=== PATIENT | male | born 1955 | race Caucasian/White ===

== ENCOUNTER → 2016-06-09 | Outpatient (CLI) | payer BC ==
[2015-11-25 13:40] VITALS: BP 120/70
[~2016-06-09] MED LIST: ACET500T68 PO; CELE200C PO; DESV50TA PO; DICL100T2 PO; DOCU-27 PO; GLUC100018 PO; HYDR-2666 PO; HYDR-2679 PO; NAPR220C4 PO; OMEP40CA5 PO; TAMS0.4C2 PO
[2016-06-09 14:07] LABS: BASO % 0 % (0-3); EOS % 3 % (0-3); HEMATOCRIT 47.1 % (39.0-53.0); LYMPH # 0.8 x10^3/uL (1.0-4.8); LYMPH % 17 % (24-48); MEAN CORPUSCULAR HEMOGLOBIN 31 pg (25-35); MEAN CORPUSCULAR HGB CONC 34 g/dL (31-37); MEAN CORPUSCULAR VOLUME 90 fL (79-100); MONO % 9 % (0-9); NEUT % 71 % (31-73); PLATELET COUNT 168 x10^3/uL (140-400); RED BLOOD COUNT 5.22 x10^6/uL (4.30-5.70); RED CELL DISTRIBUTION WIDTH 14.1 % (11.5-14.5); WHITE BLOOD COUNT 4.9 x10^3/uL (4.0-11.0)
[2016-06-09 14:42] LABS: ALBUMIN 3.9 g/dL (3.4-5.0); ALBUMIN/GLOBULIN RATIO 1.1 (1.0-1.7); CALCIUM 9.2 mg/dL (8.5-10.1); CREATININE 0.8 mg/dL (0.7-1.3); POTASSIUM 3.5 mmol/L (3.5-5.1); TOTAL BILIRUBIN 0.7 mg/dL (0.2-1.0); TOTAL PROTEIN 7.3 g/dL (6.4-8.2)
== END | disposition home or self-care (01) ==
LOC: SURGPAT 13:26
PROVIDERS: ATTEND Neurological Surgery
DX: Z01.812 Encounter for preprocedural laboratory examination (principal)
CPT/HCPCS: 36415; 80053; 85027; 87641

== ENCOUNTER → 2016-06-11 | Day surgery (SDC) | payer BC ==
[~2016-06-11] VITALS: Ht 177.8 cm; Wt 126.6 kg
[~2016-06-11] MED LIST changes: +BACITRACIN 50,000 UNIT in IV NORMAL SALINE 1000ML BAG 1,000 ML IRR ONE; +BUPIVAC MPF-EPI 0.5%-1:200000 30 ML VIAL. ONE; +DEXAMETHASONE SOD PHOS 20 MG/5 ML VIAL. ONE; +EPHEDRINE PF IN SALINE 50 MG/5 ML DISP.SYRIN. IV ONE; +FENTANYL PF 100 MCG/2 ML VIAL. IV PRN; +FENTANYL PF 100 MCG/2 ML VIAL. ONE; +GELATIN SPONGE SIZE 100. ONE; +GLYCOPYRROLATE 1 MG/5 ML VIAL. ONE; +HYDROCODONE/APAP 7.5/325MG TABLET. PO PRN; +HYDROMORPHONE 2 MG/ML VIAL. IV PRN; +IV RINGERS,LACTATED 1000ML 1,000 ML IV SCH; +KETOROLAC 60 MG/2 ML SYRINGE FOR OR. ONE; +LIDOCAINE 1% 1 ML SYRINGE. ID PRN; +LIDOCAINE 2% 100 MG/5 ML DISP.SYRIN. ONE; +MIDAZOLAM HCL 2 MG/2 ML VIAL. ONE; +MORPHINE SULFATE 2 MG/ML DISP.SYRIN. IV PRN; +NEOSTIGMINE METHYLSULFATE 5 MG/5 ML SYRINGE. ONE; +ONDANSETRON PF 4 MG/2 ML VIAL. IV PRN; +ONDANSETRON PF 4 MG/2 ML VIAL. ONE; +PHENYLEPHRINE 10 MG/ML VIAL. ONE; +PROCHLORPERAZINE 10 MG/2 ML VIAL. IV PRN; +PROPOFOL 20 ML IV ONE; +PROPOFOL 50 ML IV ONE; +REMIFENTANIL 2 MG VIAL. IV ONE; +ROCURONIUM 50 MG/5 ML VIAL. ONE; +SEVOFLURANE > 120 MINUTES. IH ONE; +THROMBIN 20,000 UNIT SPRAY.SYRN KIT TP ONE; +VANCOMYCIN 1GM IVPB FOR OMNI 250 ML IV PRN
--- NOTE | 2016-06-11 06:29 | HP ---
ADMIT DATE: 06/11/2016 Felix Montanez RN, dictating for Dr. Bryon Livingston. Date of surgery is 06/11/2016. HISTORY OF PRESENT ILLNESS: The patient is a pleasant 61-year-old man who is having difficulty with low back pain and pain which radiates into his left hip and left anterior thigh, knee and proximal anterior leg. He said he has had back pain for about one year. The problem has been severe. He rates it as an 8/10. Standing and walking aggravates his pain. Leaning forward gives him some relief. He takes [place]. He has had physical therapy, which was of no help. He has had epidural steroid injections and he received two weeks of improvement until the pain became severe again. I studied him with lumbar myelography. The patient also complains of some neck and left arm pain. He says this is an old problem and is overshadowed by his severe back and leg discomfort. He would like me to focus on his lower back. PAST MEDICAL HISTORY: Arthritis, left hip artificial joint, shingles, Rodas's esophagus. PAST SURGICAL HISTORY: hip surgery and hip replacement in 1999, cholecystectomy in 1996, appendectomy in 2011, hernia in 2014, lumbar surgery. FAMILY HISTORY: Cancer, diabetes, heart disease, hypertension. 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 . Denies substance abuse. Quit smoking more than 10 years ago after smoking a half pack per day for 10 years. Drinks alcohol one to two times per year. ALLERGIES: PENICILLIN. CURRENT MEDICATIONS: Pristiq, celecoxib, omeprazole, [place]. REVIEW OF SYSTEMS: A 12-point review of systems was obtained and is noncontributory except for that mentioned above. PHYSICAL EXAMINATION: NEUROSURGERY EXAMINATION: GENERAL APPEARANCE: Alert, pleasant, no acute distress. HEAD: Normocephalic and atraumatic. BACK: Inqz-oe-qyjlbqyl tenderness with palpation of lower lumbar spine. Well healed incision. SKIN: Warm and dry. MUSCULOSKELETAL: Lumbar paraspinal muscle bulk is normal. Restricted range of motion of the lumbar spine, normal range of motion of the lower extremities bilaterally. EXTREMITIES: No clubbing, cyanosis, or edema. NEUROLOGIC: Alert and oriented x 3, normal recent and remote memory, strength 5/5 in bilateral lower extremities and upper extremities. Sensory was intact to light touch in the upper and lower extremities. Reflexes were trace and symmetric in the upper and lower extremities bilaterally, normal gait. IMAGING: I reviewed a lumbar myelogram. On that study, there were number of abnormalities. At L2-L3 where there was a large left side extradural defect, which is primarily due to hypertrophic facet and moderate diffuse disc bulging. Additionally, at this level, there is moderately severe central spinal stenosis. ASSESSMENT/ PLAN: He has a number of problems with his lumbar spine. The major issue at this point is L2-L3 in the left where there was nerve root compression, which corresponds to his left anterior thigh and radicular pain. Today, he reported to me that he has had previous lumbar surgeries many years ago. At this point, my feeling is that if he wishes, I would be willing to operate and decompress L2-L3 on the left to see if that would not help him. I did discuss surgery and risks with him as well as expected postoperative course. He understands. He elected to go ahead with surgery and he will contact us. BRYON LIVINGSTON MD DR: MANSI/alfonso JOB#: [id number] / [id number] JACK
--- NOTE | 2016-06-11 11:25 | DISCH ---
DISCHARGE INSTRUCTIONS Condition on Discharge Condition on Discharge: Stable Activity After Discharge Activity Instructions for Disc: Activity as tolerated, Avoid exertion Other activity instructions: no driving for a week Bathing Instructions: Shower-keep dressing dry Lifting Instructions after Dis: No heavy lifting, No pulling or pushing, Do not lift >10 pounds Diet after Discharge Additional Diet Restrictions: resume home diet Wound Incision Care Wound/Incision Care: Ice to area for comfort Other wound/incision instructi: may remove dressing in 48 hrs if dry then may shower- no soaking Contacting the after DC Call your doctor for: Concerns you may have Follow-Up Follow up with: Dr. Livingston in 2 weeks [phone] PNACHO LIVINGSTON MD Jun 11, 2016 11:25
[2016-06-11 13:00] VITALS: BP 110/69
--- NOTE | 2016-06-11 14:31 | OP ---
DATE OF SURGERY: 06/11/2016 PREOPERATIVE DIAGNOSES: Lumbar spinal stenosis, L2-L3, left with severe left lumbar radiculopathy. POSTOPERATIVE DIAGNOSES: Lumbar spinal stenosis, L2-L3, left with severe left lumbar radiculopathy. OPERATION PERFORMED: Hemilaminotomy with decompression of dura and nerve root at L2-L3, left. The operation was done with EMG monitoring, fluoroscopy, microscopic dissection. SURGEON: Bryon Livingston M.D. BALANCE BRIDGE ASSEMBLER: PADMINI Emerson, assisted with the surgery. She assisted with the microdecompression as well as the closure. OPERATIVE INDICATIONS: The patient is a very pleasant 61-year-old man who in the past has undergone extensive lumbar surgery. He developed problems with severe left hip and left anterior thigh and knee pain and was found on imaging studies to have lateral recess stenosis, which was severe at L2-L3. I recommended microdecompressive surgery at this level. I spoke with him about the surgery, the risks, the technique and the expected postoperative course and he wished to go ahead. DESCRIPTION OF PROCEDURE: Following general endotracheal anesthesia, the patient was positioned prone on the [facility] spine board. His lumbar region was prepped and draped in standard fashion. BRIJESH hose and AV impulse boots were applied for DVT prophylaxis. The microscope was draped, fluoroscopy was draped and brought in the field. Vancomycin 1 gram was given. Using fluoroscopic guidance, incision was made directly over the L2-L3 interspace. He had a long well-healed lumbar incision and this incision was within that old incision. I dissected down through the skin and subcutaneous tissue, reflected the paraspinal muscles and placed a [place] micro disc retractor, brought in the microscope and using microscopic technique, I brought in the high speed air drill, from which I burred down a hemilaminotomy. There was considerable scarring. There was some residual ligamentum flavum, which was scarred to the dura. I worked gently with micro instruments, freed the ligament off of the dura and then trimmed this away. I then worked inferiorly and performed a partial foraminotomy. There was some bone, which was densely adherent from the facet to the exiting root and I worked diligently and trimmed this material away performing a partial foraminotomy. I palpated the disc, which was firm and not bulging significantly posteriorly. I removed some of the epidural fat from the posterior midline and I fully decompressed the region. Following this, then I irrigated with antibiotic solution. The incision was closed with absorbable suture and the skin was closed with 4.0 subcuticular stitch. The surgery went very well, I was quite pleased. BRYON LIVINGSTON MD DR: MANSI/alfonso JOB#: [id number] / [id number] JACK
--- NOTE | 2016-06-12 14:52 | PATHOLOGY ---
PATHOLOGY REPORT * * * * * * * * FINAL DIAGNOSIS: Segments of fibrocartilaginous, fibroadipose, and skeletal muscle tissue and bone, lumbar decompression: - Degenerative changes of fibrocartilaginous tissue. COMMENT: There is no evidence of an acute inflammatory process or malignancy. (JPM:; d/t: 06/12/16) REPORT ELECTRONICALLY SIGNED BY: Elfego Lmabert M.D. DATE/TIME: 06/12/2016 14:52 * * * * * * * * GROSS PATHOLOGY: Received in formalin labeled "Bianca Vidales, lumbar decompression" are multiple segments of shearer, rubbery, and gritty tissue admixed with bone. The specimen measures 4.8 x 3.0 x 0.5 cm in aggregate dimensions. The tissue is submitted representatively in cassette A1, following decalcification. (CAA; 06/11/2016) INITIAL CPT CODE(S): A; 53889, 10804 Professional services performed by [facility] [place] [address] Technical services performed by [facility] at [address] [place] [address]. SPECIMEN(S) RECEIVED: A.Lumbar decompression CLINICAL HISTORY: Lumbar stenosis, radiculopathy PATIENT: BIANCA VIDALES /AGE: 12 1955 (Age: 61) PATIENT #: [id number] ALT CASE #: SPECIMEN COLLECTION DATE: 06/11/2016 SPECIMEN RECEIVED DATE: 06/11/2016 [facility] - [address] [place] [address] - PHONE: [phone] * * * END OF REPORT * * *
== END ==
LOC: SURG 06:51
PROVIDERS: ATTEND Neurological Surgery
DX: M48.06 Spinal stenosis, lumbar region (principal); M54.16 Radiculopathy, lumbar region; M19.90 Unspecified osteoarthritis, unspecified site; F41.9 Anxiety disorder, unspecified; F32.9 Major depressive disorder, single episode, unspecified; K21.9 Gastro-esophageal reflux disease without esophagitis; Z90.49 Acquired absence of other specified parts of digestive tract
CPT/HCPCS: 63030; 76000; 97161; J1100; J1885; J2250; J2405; J2704; J2710; J3010; J3370; J3490; J7030; J7120; 88304; 88311

== ENCOUNTER → 2016-07-14 | Outpatient (CLI) | payer BC ==
[2016-06-11 13:00] VITALS: BP 110/69
[~2016-07-14] MED LIST changes: -BACITRACIN 50,000 UNIT in IV NORMAL SALINE 1000ML BAG 1,000 ML IRR ONE; -BUPIVAC MPF-EPI 0.5%-1:200000 30 ML VIAL. ONE; -DEXAMETHASONE SOD PHOS 20 MG/5 ML VIAL. ONE; -EPHEDRINE PF IN SALINE 50 MG/5 ML DISP.SYRIN. IV ONE; -FENTANYL PF 100 MCG/2 ML VIAL. IV PRN; -FENTANYL PF 100 MCG/2 ML VIAL. ONE; -GELATIN SPONGE SIZE 100. ONE; -GLYCOPYRROLATE 1 MG/5 ML VIAL. ONE; -HYDROCODONE/APAP 7.5/325MG TABLET. PO PRN; -HYDROMORPHONE 2 MG/ML VIAL. IV PRN; +IOHEXOL 180 MG/ML 10 ML VIAL. ONE; -IV RINGERS,LACTATED 1000ML 1,000 ML IV SCH; -KETOROLAC 60 MG/2 ML SYRINGE FOR OR. ONE; -LIDOCAINE 1% 1 ML SYRINGE. ID PRN; -LIDOCAINE 2% 100 MG/5 ML DISP.SYRIN. ONE; -MIDAZOLAM HCL 2 MG/2 ML VIAL. ONE; -MORPHINE SULFATE 2 MG/ML DISP.SYRIN. IV PRN; -NEOSTIGMINE METHYLSULFATE 5 MG/5 ML SYRINGE. ONE; -ONDANSETRON PF 4 MG/2 ML VIAL. IV PRN; -ONDANSETRON PF 4 MG/2 ML VIAL. ONE; -PHENYLEPHRINE 10 MG/ML VIAL. ONE; -PROCHLORPERAZINE 10 MG/2 ML VIAL. IV PRN; -PROPOFOL 20 ML IV ONE; -PROPOFOL 50 ML IV ONE; -REMIFENTANIL 2 MG VIAL. IV ONE; -ROCURONIUM 50 MG/5 ML VIAL. ONE; -SEVOFLURANE > 120 MINUTES. IH ONE; -THROMBIN 20,000 UNIT SPRAY.SYRN KIT TP ONE; -VANCOMYCIN 1GM IVPB FOR OMNI 250 ML IV PRN; +methylPREDNISolone ACETATE 40 MG/ML VIAL. ONE; +methylPREDNISolone ACETATE 80 MG/ML VIAL. ONE
--- NOTE | 2016-07-15 05:58 | PAIN ---
DATE OF SERVICE: 07/14/2016 DIAGNOSES: 1. Cervical radiculopathy with cervical degenerative disk disease. 2. Lumbar radiculopathy with lumbar degenerative disk disease and post-lumbar laminectomy syndrome. HISTORY OF PRESENT ILLNESS: The patient is a 61-year-old male who returns for followup status post cervical epidural steroid injection as well as lumbar epidural steroid injection. The patient had surgery last month for his lumbar spine and is doing much better in that respect. The patient reports doing much better with low back. His main complaint today is neck and bilateral upper extremity pain, somewhat worse on the left than the right, but heaviness, weakness and aching pain on the upper extremities as well as the base of the neck. The patient reports " ", although he has actually no motor loss. The patient reports anywhere from a 4 to an 8 on a scale of 10. The pain is currently a 4 on a scale of 10 right now. The patient reports no new motor or sensory deficits, has significant pain increase with activity using his upper extremities in repetitive motions, reaching above his head or carrying items with his hands, especially with driving the car or using a hands in any other fashion. The patient reports no loss of motor function, once again significant fatigability and heaviness, especially on the left side. PHYSICAL EXAMINATION: VITAL SIGNS: The patient's blood pressure 133/41, pulse is 85, respirations 18, temperature 98.1 degrees Fahrenheit. Height is 5 feet 11 inches, weighs 289 pounds. GENERAL: The patient is awake, alert, oriented, appropriate, very pleasant demeanor. HEENT: Head shows normocephalic, atraumatic. Extraocular movements are intact and symmetrical. Oral cavity, mucous membranes are moist and pink. Dentition is intact. NECK: Anterior throat supple without palpable lymphadenopathy noted. Swallow reflex is symmetrical. CHEST: Shows normal on inspection. Breath sounds clear to auscultation bilaterally. HEART: Shows S1 and S2 clear. No murmurs are auscultated. ABDOMEN: Soft, nontender, nondistended, obese, but without palpable organomegaly noted. No rebound or guarding demonstrated. BACK: Shows spine grossly midline. Well-healed surgical scar is noted in the lumbar distribution, some flattening of lumbar lordotic curvature. The patient's cervical curvature shows some mild decrease in the curvature, but normal thoracic kyphotic curvature is noted. The patient shows good rotational motion of cervical spine, both laterally as well as extension and flexion without significant pain, but some minor pain reported with extension only. EXTREMITIES: Upper extremity showed deep tendon reflexes at 1+ in the biceps and triceps tendons. Motor exam is strong; however, with 5/5 manager document strength at bicep and tricep flexion about 4/5, but equal and symmetrical. Peripheral pulses are 2+ in the radial distribution. No peripheral edema is noted. No clubbing, no cyanosis. Shoulder shrug is strong and intact without loss of strength on resistance as is abduction of shoulder to 90 degrees without loss of strength on resistance and pain reported. Options were discussed with the patient and the patient's old chart was reviewed as his current medication regimen updated. Current review of systems updated today as well and we will proceed with a cervical epidural steroid injection. Today is the first in this series. Risks were again discussed including, but not limited to bleeding, infection, possibility of epidural hematoma, subsequent neurologic compromise, dural puncture, headaches, spinal cord and/or nerve damage, side effects of steroid medication and poor results regarding pain control. The patient understands and wishes to proceed. The patient will return to clinic in approximately 2 weeks for followup, was counseled on return appointment, activity level and side effects to be aware of. DIAGNOSIS: Cervical radiculopathy with cervical degenerative disk disease. PROCEDURE: Cervical epidural steroid injection in translaminar approach at C6-C7 level using C-arm fluoroscopic guidance under sterile prep and drape using local anesthetic. Medication injected 120 mg Depo-Medrol plus 5 mL of preservative-free normal saline and 2 mL Isovue for contrast. CONDITION AT DISCHARGE: Stable. The patient tolerated procedure well, had no complications. LOUISE FIGUEROA MD DR: MICHAEL/alfonso JOB#: [id number] / [id number]
== END | disposition home or self-care (01) ==
LOC: PNCL 10:43
PROVIDERS: ATTEND Anesthesiology
DX: M50.123 Cervical disc disorder at C6-C7 level with radiculopathy (principal); M96.1 Postlaminectomy syndrome, not elsewhere classified; M51.17 Intervertebral disc disorders with radiculopathy, lumbosacral region; K21.9 Gastro-esophageal reflux disease without esophagitis; M19.90 Unspecified osteoarthritis, unspecified site; F41.9 Anxiety disorder, unspecified; F32.9 Major depressive disorder, single episode, unspecified; Z87.39 Personal history of other diseases of the musculoskeletal system and connective tissue; Z96.642 Presence of left artificial hip joint
CPT/HCPCS: 62321; J1030; J1040

== ENCOUNTER → 2016-07-23 | Outpatient (CLI) | payer BC ==
[2016-06-11 13:00] VITALS: BP 110/69
[~2016-07-23] MED LIST changes: -IOHEXOL 180 MG/ML 10 ML VIAL. ONE; -methylPREDNISolone ACETATE 40 MG/ML VIAL. ONE; -methylPREDNISolone ACETATE 80 MG/ML VIAL. ONE
--- NOTE | 2016-07-23 11:12 | RAD ---
PROCEDURE Cervical spine MRI without contrast. HISTORY Spinal stenosis. TECHNIQUE Multiplanar and multi sequence magnetic resonance imaging of the cervical spine was performed without contrast. COMPARISON None. FINDINGS There is reversal of cervical lordosis. There is slight retrolisthesis of C3 on C4 and C 6 on C7 and anterolisthesis of C4 on C5, C7 on T1 and T1 on T2. There is degenerative endplate remodeling with disc space narrowing predominately at C5-C6 and C6-C7. There are Schmorl's nodes at these levels. There is a minimal superior endplate depression at T3. There is no acute or subacute fracture. There are right greater than left maxillary sinus mucous retention cysts. The skullbase and posterior fossa are unremarkable. There is symmetric T2 hyperintensity within the lateral aspects of the spinal cord extending from the inferior aspect C4 to the mid aspect of C5 and within the bilateral dorsal columns at the inferior aspect of C5. This region of abnormal signal measures approximately 2.5 cm in length and occupies the majority of the spinal cord caliber with preservation of the midline. There is no evidence of cord atrophy in this location. No additional spinal cord lesion is seen. There is a small round hypointense lesion within the inferior aspect of T1, possibly an atypical hemangioma. At C2-C3, there is right posterior lateral predominant endplate remodeling. There is mild right facet and uncovertebral arthropathy. There is mild right foraminal stenosis. At C3-C4, there is a left paracentral to foraminal disc protrusion superimposed on a disc bulge and endplate osteophytosis. There is mild to moderate left facet arthropathy. There is uncovertebral arthropathy. There is moderate to severe right and severe left foraminal stenosis. There is mild central canal stenosis with effacement of the thecal sac and abutment of the ventral aspect of the spinal cord. At C4-C5, there is a broad-based right paracentral to foraminal disc protrusion superimposed on a disc bulge and endplate osteophytosis. There is moderate bilateral facet arthropathy. There is uncovertebral arthropathy. There is severe bilateral foraminal stenosis. There is moderate to severe central canal stenosis measuring 7.4 mm in anterior-posterior dimension. There is deformation of the spinal cord and abnormal spinal cord signal at this level, described in detail above. At C5-C6, there is a diffuse disc bulge and endplate osteophytosis. There is mild facet arthropathy. There is uncovertebral arthropathy. There is moderate to severe bilateral foraminal stenosis. There is flattening of the ventral aspect of the spinal cord without significant central canal stenosis. At C6-C7, there is a diffuse disc bulge and endplate osteophytosis. There is uncovertebral arthropathy. There is severe right and moderate to severe left foraminal stenosis. There is abutment of the ventral aspect of the spinal cord with mild central canal stenosis measuring 9.3 mm in anterior-posterior dimension. There are disc bulges with endplate remodeling and facet arthropathy at the upper thoracic levels, resulting in moderate left foraminal stenosis at C7-T1, moderate to severe bilateral foraminal stenosis at T1-T2, mild right and moderate left foraminal stenosis at T2-T3, and mild bilateral foraminal stenosis at T3-T4. IMPRESSION 1. Signal abnormality within the lateral aspect of the spinal cord and bilateral dorsal columns at C4 and C5. There is no clear decreased cord caliber to suggest myelomalacia. The differential includes edema and demyelination. Short-term followup is indicated. 2. Multilevel degenerative change within the cervical and upper thoracic spine, described in detail above. This results in mild right foraminal stenosis at C2-C3, moderate to severe right and severe left foraminal and mild central canal stenosis C3-C4, severe bilateral foraminal and moderate to severe central canal stenosis C4-C5, moderate to severe bilateral foraminal stenosis at C5-C6, severe right and moderate to severe left foraminal and mild central canal stenosis at C6-C7, and multilevel foraminal stenosis at the upper thoracic levels. 3. Reversal of cervical lordosis and multilevel listhesis. Electronically signed by: Elaine Doan (Jul 23, 2016 11:11:32)
== END | disposition home or self-care (01) ==
LOC: MRI 09:51
PROVIDERS: ATTEND Neurological Surgery
DX: M48.02 Spinal stenosis, cervical region (principal)
CPT/HCPCS: 72141

== ENCOUNTER → 2016-08-10 | Outpatient (CLI) | payer BC ==
[2016-06-11 13:00] VITALS: BP 110/69
[~2016-08-10] MED LIST changes: +MULT1TAB52 PO
[2016-08-10 17:34] LABS: BASO # 0.1 x10^3/uL (0.0-0.2); BASO % 1 % (0-3); EOS % 4 % (0-3); HEMATOCRIT 48.5 % (39.0-53.0); HEMOGLOBIN 16.8 g/dL (13.0-17.5); LYMPH # 2.1 x10^3/uL (1.0-4.8); LYMPH % 29 % (24-48); MEAN CORPUSCULAR HEMOGLOBIN 31 pg (25-35); MEAN CORPUSCULAR HGB CONC 35 g/dL (31-37); MEAN CORPUSCULAR VOLUME 89 fL (79-100); MONO % 8 % (0-9); NEUT % 58 % (31-73); PLATELET COUNT 215 x10^3/uL (140-400); RED BLOOD COUNT 5.48 x10^6/uL (4.30-5.70); RED CELL DISTRIBUTION WIDTH 13.7 % (11.5-14.5); WHITE BLOOD COUNT 7.3 x10^3/uL (4.0-11.0)
[2016-08-10 17:48] LABS: PROTHROMBIN TIME PATIENT 12.3 SEC (11.7-14.0)
[2016-08-10 17:55] LABS: ALBUMIN 3.7 g/dL (3.4-5.0); CALCIUM 9.4 mg/dL (8.5-10.1); CREATININE 0.8 mg/dL (0.7-1.3); TOTAL BILIRUBIN 0.4 mg/dL (0.2-1.0); TOTAL PROTEIN 7.4 g/dL (6.4-8.2)
== END | disposition home or self-care (01) ==
LOC: SURGPAT 13:29
PROVIDERS: ATTEND Neurological Surgery
DX: M54.12 Radiculopathy, cervical region (principal); M48.02 Spinal stenosis, cervical region; M47.12 Other spondylosis with myelopathy, cervical region
CPT/HCPCS: 36415; 80053; 85027; 85610; 85730; 87641

== ENCOUNTER 2016-08-24 06:54 | Day surgery (SDC) | payer BC ==
--- NOTE | 2016-08-24 06:30 | PREOP HP ---
DATE OF SERVICE: 08/24/2016 DATE OF SURGERY: 08/28/2016. HISTORY OF PRESENT ILLNESS: The patient is a pleasant 61-year-old who underwent lumbar decompressive surgery in May of this year and did very well from that. He has noted increasing neck pain and bilateral shoulder pain more recently. He says pain radiates into both of his arms, and he notes bilateral hand numbness and pain. He says he feels as though he has developed some balance changes recently. There was no inciting event. He rates his pain as a 7 out of 10. Walking or reaching up increases his discomfort. He is taking hydrocodone. PAST MEDICAL HISTORY: Arthritis, left hip artificial joint, shingles, and Rodas esophagus. PAST SURGICAL HISTORY: Hip surgery and hip replacement in 1999, cholecystectomy in 1996, appendectomy in 2011, hernia repair 2014, and lumbar microdecompression at L2-L3 on the left 05/2016. FAMILY HISTORY: Cancer, heart disease, and hypertension. 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 . Denies substance abuse. Quit smoking more than 10 years ago. Smoked 1 pack per day for 10 years. Drinks alcohol one to two times per year. ALLERGIES: PENICILLIN. CURRENT MEDICATIONS: ____ , celecoxib, omeprazole, [place]. REVIEW OF SYSTEMS: A 12-point review of systems was obtained and is noncontributory except for that mentioned above. PHYSICAL EXAMINATION: NEUROSURGERY EXAMINATION: GENERAL APPEARANCE: Alert, pleasant, no acute distress. HEAD: Normocephalic and atraumatic. NECK AND THYROID: Mild to moderate tenderness with palpation of posterior cervical region. SKIN: Warm and dry. MUSCULOSKELETAL: Cervical paraspinal muscle bulk is normal, restricted range of motion of the cervical spine, normal range of motion of the upper extremities bilaterally. EXTREMITIES: No clubbing, cyanosis, or edema. NEUROLOGIC: Alert and oriented x 3, normal recent and remote memory, strength 5 out of 5 in bilateral upper and lower extremities, sensory was intact to light touch in the upper and lower extremities except for decreased involving both his forearms and hands to light touch, reflexes were absent in both upper and lower extremities, and unsteady gait. IMAGING REVIEWED: I reviewed his cervical MRI scan. On that study, there is mild central canal stenosis at C3-C4. There is severe central canal stenosis present at C4-C5 and C5-C6. There is flattening of the ventral surface of the cord without severe stenosis. There is multilevel foraminal narrowing present. Additionally, extending from the inferior aspect of C4 through the mild aspect of C5, there is symmetric T2 hyperintensity within the spinal cord strongly suggestive of edema versus myelomalacia. ASSESSMENT: 1. Spinal stenosis, cervical region. 2. Spondylosis with myelopathy, cervical region. 3. Radiculopathy, cervical region. PLAN: At this point, I feel his primary problem is related to cervical myelopathy and cervical spinal stenosis. My recommendation is that he undergo a cervical laminectomy extending from C3 through C6 with posterior instrumentation and fusion. I did discuss this with him. I outlined the risks of surgery as well as potentials benefits. I also explained the expected postoperative course. He would like to go ahead. We will make the arrangements. PANCHO LIVINGSTON MD DR: MANSI/alfonso JOB#: [id number] / [id number]
[~2016-08-24 06:54] MED LIST changes: +BACITRACIN 50,000 UNIT in IV NORMAL SALINE 1000ML BAG 1,000 ML IRR ONE; +FENTANYL PF 100 MCG/2 ML VIAL. IV PRN; +IV RINGERS,LACTATED 1000ML 1,000 ML IV SCH; +LIDOCAINE 1% 1 ML SYRINGE. ID PRN; +MIDAZOLAM HCL/PF 2 MG/2 ML VIAL. IV PRN
[2016-08-24] MEDS ORDERED: PROCHLORPERAZINE 10 MG/2 ML VIAL. IV PRN (07:00)
[2016-08-24] MEDS ORDERED: HYDROMORPHONE 2 MG/ML VIAL. IV PRN (07:00)
[2016-08-24] MEDS ORDERED: IV RINGERS,LACTATED 1000ML 1,000 ML IV SCH (07:00)
[2016-08-24] MEDS ORDERED: ONDANSETRON PF 4 MG/2 ML VIAL. IV PRN (07:00)
[2016-08-24] MEDS ORDERED: VANCOMYCIN 1GM IVPB FOR OMNI. ONE (07:00)
[2016-08-24] MEDS ORDERED: LIDOCAINE 1% 1 ML SYRINGE. ID PRN (07:00)
[2016-08-24] MEDS ORDERED: FENTANYL PF 100 MCG/2 ML VIAL. IV PRN (07:00)
[2016-08-24] MEDS ORDERED: MORPHINE SULFATE 2 MG/ML DISP.SYRIN. IV PRN (07:00)
[2016-08-24] MEDS ORDERED: BUPIVAC MPF-EPI 0.5%-1:200000 30 ML VIAL. ONE (07:58)
[2016-08-24] MEDS ORDERED: KETOROLAC 60 MG/2 ML INJ FOR OR. ONE (07:58)
[2016-08-24] MEDS ORDERED: GELATIN SPONGE SIZE 100. ONE (07:58)
[2016-08-24] MEDS ORDERED: THROMBIN TOPICAL 20,000 UNIT SPRAY.SYRN KIT TP ONE (07:58)
[2016-08-24] MEDS ORDERED: VANCOMYCIN 1GM IVPB FOR OMNI 250 ML IV ONE (08:00)
[2016-08-24] MEDS ORDERED: PROPOFOL 50 ML IV ONE (08:10)
[2016-08-24] MEDS ORDERED: FENTANYL PF 100 MCG/2 ML VIAL. ONE (08:10)
[2016-08-24] MEDS ORDERED: LIDOCAINE 2% 100 MG/5 ML SYRINGE. ONE (08:10)
[2016-08-24] MEDS ORDERED: PROPOFOL 20 ML IV ONE (08:10)
[2016-08-24] MEDS ORDERED: SUCCINYLCHOLINE 200 MG/10 ML VIAL. ONE (08:10)
[2016-08-24] MEDS ORDERED: DEXAMETHASONE SOD PHOS 20 MG/5 ML VIAL. ONE (08:10)
[2016-08-24] MEDS ORDERED: REMIFENTANIL 2 MG VIAL. IV ONE (08:10)
[2016-08-24] MEDS ORDERED: ROCURONIUM 50 MG/5 ML VIAL. ONE (08:10)
[2016-08-24] MEDS ORDERED: MIDAZOLAM HCL/PF 2 MG/2 ML VIAL. ONE (08:20)
[2016-08-24] MEDS ORDERED: EPHEDRINE PF IN SALINE 50 MG/5 ML DISP.SYRIN. IV ONE ×2 (09:01→09:53)
[2016-08-24] MEDS ORDERED: GLYCOPYRROLATE 1 MG/5 ML VIAL. ONE (09:01)
[2016-08-24] MEDS ORDERED: PHENYLEPHRINE 10 MG/ML VIAL. ONE (09:07)
[2016-08-24] MEDS ORDERED: NEOSTIGMINE METHYLSULFATE 5 MG/5 ML SYRINGE. ONE (10:08)
[2016-08-24] MEDS ORDERED: DESFLURANE 61 TO 120 MINUTES IH ONE (10:23)
--- NOTE | 2016-08-24 10:34 | PDOC ---
Date and Time Patient for posterior cervical laminectomy. Tolearted induction and intubation without problem. Soon after he was placed in the prone position oxygen saturation declined to the upper 80s and BP required onging treatment with pressors and fluid. Head discolored. Lung askew were clear bilaterally to ascultation. No ronchi. ETT cuff checked and found to be properly inflated to just seal. Repositioned head and neck with slight improvement in color. I placed bronchchoscope to make certain that ETT was not malpositioned. ETT 1.5 cm above brian. There were no secretions or lesions noted than would explain the saturation. Discussed with surgeon. We decided that the best course was to not start the procedure and have pulmonary medicine evaluate the patient. Upon returning to the supine position saturation quickly improved to 98%. BP improved to 150/80s Head discoloration improved rapidly too. I suspect the hemodynamic and saturation issues were directly caused by positioning the patient prone with abdominal compression. Will have pulmonary medicine see him to be certain there are no underlying issues. When he is rescheduled we will have to have an operating table that allows his abdomen to hang freely. Current Medications Current Medications Midazolam HCl (Versed) 2 mg PRN 1X PRN IV PRIOR TO PROCEDURE; Start 08/21/16 at 15:00; Stop 08/22/16 at 14:59; Status Cancel Fentanyl Citrate (Fentanyl 2ml Vial) 25 mcg PRN Q5MIN PRN IV X 2 DOSES FOR PAIN ; Start 08/21/16 at 15:00; Stop 08/22/16 at 14:59; Status Cancel Fentanyl Citrate 50 mcg 50 mcg PRN Q5MIN PRN IV X 2 DOSES FOR PAIN; Start at 15:00; Stop 08/22/16 at 14:59; Status Cancel Lactated Ringer's (Iv Lactated Ringers) 1,000 ml @ 125 mls/hr Q8H IV ; Start at 14:57; Stop 08/22/16 at 02:56; Status DC Lidocaine HCl 2 ml 1X PRN PRN ID IV START; Start 08/21/16 at 15:00; Stop at 14:59; Status Cancel Ondansetron HCl (Zofran) 4 mg PRN Q6HRS PRN IV NAUSEA/VOMITING; Start 08/24/16 at 07:00; Stop 08/25/16 at 06:59 Fentanyl Citrate (Fentanyl 2ml Vial) 25 mcg PRN Q5MIN PRN IV MILD PAIN; Start 08/24/16 at 07:00; Stop 08/25/16 at 06:59 Fentanyl Citrate (Fentanyl 2ml Vial) 50 mcg PRN Q5MIN PRN IV MODERATE PAIN; Start 08/24/16 at 07:00; Stop 08/25/16 at 06:59 Morphine Sulfate 1 mg 1 mg PRN Q10MIN PRN IV SEVERE PAIN; Start 08/24/16 at 07: 00; Stop 08/25/16 at 06:59 Lactated Ringer's (Iv Lactated Ringers) 1,000 ml @ 0 mls/hr Q0M IV Last administered on 08/24/16t 07:44; Start 08/24/16 at 07:00; Stop 08/24/16 at 18:59 Lidocaine HCl 2 ml PRN 1X PRN ID PRIOR TO IV START; Start 08/24/16 at 07:00; Stop 08/25/16 at 06:59 Hydromorphone HCl (Dilaudid) 0.5 mg PRN Q10MIN PRN IV SEV PAIN, Second choice; Start 08/24/16 at 07:00; Stop 08/25/16 at 06:59 Prochlorperazine Edisylate 5 mg 5 mg PACU PRN PRN IV NAUSEA, MRX1; Start at 07:00; Stop 08/25/16 at 06:59 Vancomycin HCl 250 ml @ 250 mls/hr 1X ONCE IV ; Start 08/24/16 at 08:00; Stop 08/24/16 at 08:59; Status DC Bacitracin/Sodium Chloride (Bacitracin/Iv Sodium Chloride 0.9% 1000ml Bag) 1, 000 ml @ 1,000 mls/hr 1X PERIOP ONCE IRR ; Start 08/24/16 at 06:00; Stop 08/24 at 06:59; Status DC Bupivacaine HCl/ Epinephrine Bitart (Sensorcain-Mpf Epi 0.5%-1:[id number]) 30 ml STK -MED ONCE .ROUTE ; Start 08/24/16 at 07:58; Stop 08/24/16 at 07:59; Status DC Gelatin (Gelfoam Size 100) 1 each STK-MED ONCE .ROUTE ; Start 08/24/16 at 07:58 ; Stop 08/24/16 at 07:59; Status DC Ketorolac Tromethamine (Toradol For Or Only) 60 mg STK-MED ONCE .ROUTE ; Start 08/24/16 at 07:58; Stop 08/24/16 at 07:59; Status DC Thrombin 20,000 unit STK-MED ONCE TP ; Start 08/24/16 at 07:58; Stop 08/24/16 at 07:59; Status DC Dexamethasone Sodium Phosphate 20 mg 20 mg STK-MED ONCE .ROUTE ; Start 08/24/16 at 08:10; Stop 08/24/16 at 08:11; Status DC Propofol (Diprivan) 20 ml @ As Directed STK-MED ONCE IV ; Start 08/24/16 at 08: 10; Stop 08/24/16 at 08:11; Status DC Lidocaine HCl 100 mg 100 mg STK-MED ONCE .ROUTE ; Start 08/24/16 at 08:10; Stop 08/24/16 at 08:11; Status DC Propofol (Diprivan) 50 ml @ As Directed STK-MED ONCE IV ; Start 08/24/16 at 08: 10; Stop 08/24/16 at 08:11; Status DC Fentanyl Citrate (Fentanyl 2ml Vial) 100 mcg STK-MED ONCE .ROUTE ; Start at 08:10; Stop 08/24/16 at 08:11; Status DC Remifentanil HCl (Ultiva) 2 mg STK-MED ONCE IV ; Start 08/24/16 at 08:10; Stop 08/24/16 at 08:11; Status DC Succinylcholine Chloride (Anectine) 200 mg STK-MED ONCE .ROUTE ; Start 08/24/16 at 08:10; Stop 08/24/16 at 08:11; Status DC Rocuronium [place] (Zemuron) 50 mg STK-MED ONCE .ROUTE ; Start 08/24/16 at 08:10 ; Stop 08/24/16 at 08:11; Status DC Midazolam HCl (Versed) 2 mg STK-MED ONCE .ROUTE ; Start 08/24/16 at 08:20; Stop 08/24/16 at 08:21; Status DC Ephedrine Sulfate 50 mg STK-MED ONCE IV ; Start 08/24/16 at 09:01; Stop at 09:11; Status DC Glycopyrrolate (Robinul) 1 mg STK-MED ONCE .ROUTE ; Start 08/24/16 at 09:01; Stop 08/24/16 at 09:11; Status DC Phenylephrine HCl (Jose Carlos-Synephrine Inj) 10 mg STK-MED ONCE .ROUTE ; Start at 09:07; Stop 08/24/16 at 09:12; Status DC Ephedrine Sulfate 50 mg STK-MED ONCE IV ; Start 08/24/16 at 09:53; Stop at 09:54; Status DC Neostigmine Methylsulfate 5 mg STK-MED ONCE .ROUTE ; Start 08/24/16 at 10:08; Stop 08/24/16 at 10:09; Status DC Desflurane (Suprane) 60 ml STK-MED ONCE IH ; Start 08/24/16 at 10:23; Stop 08/24 at 10:24; Status DC Active Scripts Active Lortab 7.5-325 mg Tablet (Hydrocodone/Acetaminophen) 1 Each Tablet 1 Tab PO PRN Q6HRS PRN Reported Multivitamins (Multivitamin) 1 Each Tablet 1 Tab PO DAILY Tamsulosin Hcl 0.4 Mg Cap.er.24h 1 Cap PO DAILY Glucosamine (Glucosamine Sulfate 2KCL) 1,000 Mg Tablet 1,000 Mg PO BID Celebrex (Celecoxib) 200 Mg Capsule 1 Cap PO BID Omeprazole 40 Mg Capsule.dr 40 Mg PO DAILY Pristiq Er (Desvenlafaxine Succinate) 50 Mg Tab.er.24h 50 Mg PO DAILY LAST VITALS Vital Signs Date Time Temp Pulse Resp B/P Pulse Ox O2 Delivery O2 Flow Rate FiO2 08/24/16 07:39 97.8 66 18 121/65 97 Room Air 97.8 TORRI SAWYER MD Aug 24, 2016 10:34
[2016-08-24] MEDS: FENTANYL PF 100 MCG/2 ML VIAL. IV PRN ×2 (10:49→10:56)
--- NOTE | 2016-08-24 10:55 | DISCH ---
DISCHARGE INSTRUCTIONS Condition on Discharge Condition on Discharge: Stable Activity After Discharge Activity Instructions for Disc: Activity as tolerated Lifting Instructions after Dis: No pulling or pushing, Do not lift >10 pounds Diet after Discharge Additional Diet Restrictions: resume home diet Contacting the DRTory after DC Call your doctor for: Concerns you may have Follow-Up Follow up with: see Dr. Marcial (pulmonary) 08-28-16, will be R/S for surgery when cleared PANCHO LIVINGSTON MD Aug 24, 2016 10:54
--- NOTE | 2016-08-24 16:39 | RAD ---
Chest, 2 views, 08/24/2016: History: Desaturation with anesthesia Comparison is made to a study from 06/04/2003. The heart size and pulmonary vascularity are normal. There is mild discoid atelectasis in the right parahilar region and left base. There are granulomatous calcifications in the right chest. The lungs are otherwise clear. There is no evidence of pleural fluid. Mild spurring is present in the spine. IMPRESSION: 1. Mild right parahilar and left basilar discoid atelectasis. 2. No other acute cardiopulmonary abnormality is detected.
[2016-09-02] MEDS ORDERED: POTASSIUM CL 20MEQ D5-0.45NACL 1,000 ML IV SCH (13:49)
[2016-09-02] MEDS ORDERED: FENTANYL PF 100 MCG/2 ML VIAL. IV PRN ×2 (14:00)
[2016-09-02] MEDS ORDERED: DIPHENHYDRAMINE HCL 25 MG CAPSULE PO PRN (14:00)
[2016-09-02] MEDS ORDERED: MAG HYDROX/ALUMINUM HYD/SIMETH 30 ML ORAL.SUSP PO PRN (14:00)
[2016-09-02] MEDS ORDERED: CALCIUM CARBONATE 500 MG TAB.CHEW PO PRN (14:00)
[2016-09-02] MEDS ORDERED: DIPHENHYDRAMINE 50 MG/ML VIAL. IV PRN (14:00)
[2016-09-02] MEDS ORDERED: 0.9 % SODIUM CHLORIDE 10 ML DISP.SYRIN. IV PRN (14:00)
[2016-09-02] MEDS ORDERED: CYCLOBENZAPRINE 10 MG TABLET. PO PRN (14:00)
[2016-09-02] MEDS ORDERED: OXYCODONE/APAP 5/325 TABLET. PO PRN ×2 (14:00)
[2016-09-02] MEDS ORDERED: ONDANSETRON PF 4 MG/2 ML VIAL. IV PRN (14:00)
[2016-09-02] MEDS ORDERED: MAGNESIUM HYDROXIDE 2,400 MG/30 ML ORAL.SUSP. PO PRN (14:00)
[2016-09-02] MEDS ORDERED: ACETAMINOPHEN 325 MG TABLET. PO PRN (14:00)
[2016-09-02] MEDS ORDERED: VANCOMYCIN 1 GM in IV NORMAL SALINE 250ML 250 ML IV ONE (14:15)
[2016-09-02] MEDS ORDERED: DOCUSATE SODIUM 100 MG CAPSULE. PO SCH (21:00)
[2016-09-03] MEDS ORDERED: TAMSULOSIN 0.4 MG CAP.ER.24H. PO SCH (09:00)
[2016-09-03] MEDS ORDERED: NON FORMULARY ITEM (Multivitamin (Multivitamins) 1 TAB) PO SCH (09:00)
[2016-09-03] MEDS ORDERED: NON FORMULARY ITEM (Omeprazole 40 MG) PO SCH (09:00)
[2016-09-03] MEDS ORDERED: DESVENLAFAXINE SUCCINATE 50 MG PO SCH (09:00)
== END 2016-08-24 14:00 | disposition home or self-care (01) ==
LOC: UNDOADMIN 06:54 → OPSVCOP 06:54 → OPSVCIP 06:54 → EDSTATUS 08:30 → OPSVCOP 14:00
PROVIDERS: ATTEND Neurological Surgery
DX: M48.02 Spinal stenosis, cervical region (principal); Z53.9 Procedure and treatment not carried out, unspecified reason; M47.12 Other spondylosis with myelopathy, cervical region; M54.12 Radiculopathy, cervical region; K22.70 Barrett's esophagus without dysplasia; Z96.649 Presence of unspecified artificial hip joint; Z82.49 Family history of ischemic heart disease and other diseases of the circulatory system; Z87.891 Personal history of nicotine dependence; Z90.49 Acquired absence of other specified parts of digestive tract
CPT/HCPCS: 22551; 36415; 71020; 86850; 86900; 86901; J0330; J1100; J1885; J2250; J2704; J2710; J3010; J3370; J3490; J7030; J7120

== ENCOUNTER 2016-09-02 06:50 | Inpatient (IN) | payer BC ==
[~2016-09-02] VITALS: Ht 177.8 cm; Wt 133.8 kg
[2016-09-02] VITALS (8 sets, daily range): BP systolic 128–154; BP diastolic 70–97
[~2016-09-02 06:50] MED LIST changes: -FENTANYL PF 100 MCG/2 ML VIAL. IV PRN; -IV RINGERS,LACTATED 1000ML 1,000 ML IV SCH; -LIDOCAINE 1% 1 ML SYRINGE. ID PRN; -MIDAZOLAM HCL/PF 2 MG/2 ML VIAL. IV PRN; +VANCOMYCIN 1GM IVPB FOR OMNI 250 ML IV PRN
[2016-09-02] MEDS ORDERED: GELATIN SPONGE SIZE 100. ONE (06:53)
[2016-09-02] MEDS ORDERED: THROMBIN TOPICAL 20,000 UNIT SPRAY.SYRN KIT TP ONE (06:53)
[2016-09-02] MEDS ORDERED: KETOROLAC 60 MG/2 ML INJ FOR OR. ONE (06:53)
[2016-09-02] MEDS ORDERED: BUPIVAC MPF-EPI 0.5%-1:200000 30 ML VIAL. ONE (06:53)
[2016-09-02] MEDS ORDERED: PROCHLORPERAZINE 10 MG/2 ML VIAL. IV PRN (07:00)
[2016-09-02] MEDS ORDERED: LIDOCAINE 1% 1 ML SYRINGE. ID PRN (07:00)
[2016-09-02] MEDS ORDERED: ONDANSETRON PF 4 MG/2 ML VIAL. IV PRN ×2 (07:00→14:45)
[2016-09-02] MEDS ORDERED: FENTANYL PF 100 MCG/2 ML VIAL. IV PRN ×4 (07:00→14:45)
[2016-09-02] MEDS: IV RINGERS,LACTATED 1000ML 1,000 ML IV SCH ×2 (07:45→13:19)
[2016-09-02] MEDS ORDERED: MIDAZOLAM HCL/PF 2 MG/2 ML VIAL. ONE (08:06)
[2016-09-02] MEDS ORDERED: REMIFENTANIL 2 MG VIAL. IV ONE ×2 (08:06→10:28)
[2016-09-02] MEDS ORDERED: GLYCOPYRROLATE 1 MG/5 ML VIAL. ONE (08:06)
[2016-09-02] MEDS ORDERED: LIDOCAINE 2% 100 MG/5 ML SYRINGE. ONE (08:07)
[2016-09-02] MEDS ORDERED: DEXAMETHASONE SOD PHOS 20 MG/5 ML VIAL. ONE (08:07)
[2016-09-02] MEDS ORDERED: PROPOFOL 50 ML IV ONE ×2 (08:07→09:56)
[2016-09-02] MEDS ORDERED: DESFLURANE > 120 MINUTES IH ONE (08:07)
[2016-09-02] MEDS ORDERED: PROPOFOL 20 ML IV ONE (08:07)
[2016-09-02] MEDS ORDERED: ONDANSETRON PF 4 MG/2 ML VIAL. ONE (08:07)
[2016-09-02] MEDS ORDERED: PHENYLEPHRINE 10 MG/ML VIAL. ONE (08:07)
[2016-09-02] MEDS ORDERED: ROCURONIUM 50 MG/5 ML VIAL. ONE (08:10)
[2016-09-02] MEDS ORDERED: 0.9 % SODIUM CHLORIDE 50 ML VIAL. IJ ONE (10:28)
[2016-09-02] MEDS ORDERED: FENTANYL PF 250 MCG/5 ML VIAL. ONE (10:30)
[2016-09-02] MEDS: MORPHINE SULFATE 2 MG/ML DISP.SYRIN. IV PRN ×2 (13:20→13:45)
[2016-09-02] MEDS: HYDROMORPHONE 2 MG/ML VIAL. IV PRN ×4 (13:21→14:25)
[2016-09-02] MEDS ORDERED: NEOMY/BACITR/POLYMYXIN OINT PACKET. TP ONE (14:05)
[2016-09-02] MEDS ORDERED: CALCIUM CARBONATE 500 MG TAB.CHEW PO PRN (14:45)
[2016-09-02] MEDS ORDERED: MAGNESIUM HYDROXIDE 2,400 MG/30 ML ORAL.SUSP. PO PRN (14:45)
[2016-09-02] MEDS ORDERED: DIPHENHYDRAMINE HCL 25 MG CAPSULE PO PRN (14:45)
[2016-09-02] MEDS ORDERED: OXYCODONE/APAP 5/325 TABLET. PO PRN (14:45)
[2016-09-02] MEDS ORDERED: MAG HYDROX/ALUMINUM HYD/SIMETH 30 ML ORAL.SUSP PO PRN (14:45)
[2016-09-02] MEDS ORDERED: DIPHENHYDRAMINE 50 MG/ML VIAL. IV PRN (14:45)
[2016-09-02] MEDS ORDERED: ACETAMINOPHEN 325 MG TABLET. PO PRN (14:45)
[2016-09-02] MEDS ORDERED: 0.9 % SODIUM CHLORIDE 10 ML DISP.SYRIN. IV PRN (14:45)
[2016-09-02] MEDS: MULTIVITAMIN with MINERAL TABLET. PO SCH (15:00)
[2016-09-02] MEDS: TAMSULOSIN 0.4 MG CAP.ER.24H. PO SCH ×2 (15:00→21:27)
[2016-09-02] MEDS: OXYCODONE/APAP 5/325 TABLET. PO PRN ×2 (15:27→19:27)
[2016-09-02] MEDS: ALBUTEROL SULFATE 2.5 MG/3 ML NEBU. NEB SCH (18:19)
[2016-09-02] MEDS: POTASSIUM CL 20MEQ D5-0.45NACL 1,000 ML IV SCH (19:27)
[2016-09-02] MEDS ORDERED: NON FORMULARY ITEM (Glucosamine Sulfate 2KCL (Glucosamine) 1,000 MG) PO SCH (21:00)
[2016-09-02] MEDS ORDERED: VANCOMYCIN 1 GM in IV NORMAL SALINE 250ML 250 ML IV ONE (21:00)
[2016-09-02] MEDS: DOCUSATE SODIUM 100 MG CAPSULE. PO SCH (21:27)
[2016-09-03] MEDS: ALBUTEROL SULFATE 2.5 MG/3 ML NEBU. NEB SCH ×4 (00:21→19:23)
[2016-09-03 02:56] VITALS: BP 124/62
[2016-09-03] MEDS: POTASSIUM CL 20MEQ D5-0.45NACL 1,000 ML IV SCH (03:55)
[2016-09-03] MEDS: OXYCODONE/APAP 5/325 TABLET. PO PRN ×2 (05:19→08:55)
[2016-09-03 05:30] VITALS: BP 123/65
[2016-09-03] MEDS: PANTOPRAZOLE 40 MG TABLET.DR. PO SCH (06:34)
[2016-09-03 07:00] VITALS: BP 126/69
--- NOTE | 2016-09-03 08:15 | RAD ---
Chest, 2 views, 09/02/2016: History: Postop desaturation Comparison is made to a study from 08/24/2016. The heart size and pulmonary vascularity are normal. There is moderate tortuosity of the thoracic aorta. No pulmonary infiltrates are seen. There is a calcified granuloma in the right lung base. There is no evidence of pleural fluid. Moderate degenerative changes are evident in the spine. IMPRESSION: No acute cardiopulmonary abnormality is detected.
[2016-09-03] MEDS: DESVENLAFAXINE 25 MG TAB.ER.24H PO SCH (08:53)
[2016-09-03] MEDS: MULTIVITAMIN with MINERAL TABLET. PO SCH (08:55)
[2016-09-03] MEDS: DOCUSATE SODIUM 100 MG CAPSULE. PO SCH ×2 (08:55→20:58)
[2016-09-03] MEDS: CYCLOBENZAPRINE 10 MG TABLET. PO PRN ×2 (09:50→20:58)
[2016-09-03] MEDS: OXYCODONE/APAP 10/325 TABLET. PO PRN ×4 (09:53→23:30)
--- NOTE | 2016-09-03 10:39 | CONS ---
DATE OF CONSULTATION: PULMONARY CONSULTATION ATTENDING PHYSICIAN: Dr. Bryon Thomas. REASON FOR CONSULTATION: Postop hypoxia. HISTORY OF PRESENT ILLNESS: The patient is a pleasant 61-year-old morbidly obese male who has only 10 years of tobacco use. He has history of spinal stenosis and myelopathy and underwent surgery yesterday. Details of the operative note not available as it has not been dictated. Postoperatively, he was requiring 3 liters of oxygen, as a result, I have been asked to see him for further evaluation. The patient states that he has no shortness of breath. No significant cough, no chest pains. He is having some mild shakiness in his upper and lower extremities since the surgery. I have reviewed the patient's chest x-ray and does not show any definite infiltrates or consolidation. He is currently down to 2 liters of oxygen. The patient was also started on nebulizer treatments. The patient was also evaluated for obstructive sleep apnea, has history of snoring and witnessed apneas and his sleep study scheduled on 09/23. PAST MEDICAL HISTORY: 1. Suspected MALIK. 2. Underlying morbid obesity. BMI of 42. 3. Minimal history of tobacco use. PAST SURGICAL HISTORY: Recent spinal surgery. ALLERGIES: PENICILLIN. CURRENT MEDICATIONS: All reviewed as listed in the MRAD including albuterol nebulizer treatments. SYSTEM REVIEW: Twelve-point systems obtained, pertinent positives discussed in history of present illness, otherwise noncontributory. All systems that were negative were reviewed as well. SOCIAL HISTORY: Smoked only for 10 years ____ quitting a long-term ago. PHYSICAL EXAMINATION: VITAL SIGNS: Latest blood pressure is stable, T-max of 99.2, pulse ox 96% on 2 liters. NECK: Supple. LUNGS: Diminished breath sounds. CARDIOVASCULAR: Regular rate and rhythm. ABDOMEN: Soft, obese. EXTREMITIES: With trace pitting edema. LABORATORY DATA: Labs were reviewed from 08/10, white cell count 7.3. Latest labs are not available. IMPRESSION: 1. Mild postop hypoxia in the patient who is morbidly obese and most likely from the effect of anesthetic agents and possible micro- atelectasis. Clinically improving, chest x-ray without any definite consolidation or mucus plug. He would benefit from incentive spirometry. 2. Highly suspected MALIK. The patient is morbidly obese and has witnessed apneas and snoring. His sleep study scheduled as an outpatient on 09/23. 3. Spinal stenosis , status post decompression surgery. RECOMMENDATIONS: 1. Continue with present nebulizer treatment. 2. Gradually wean oxygen. 3. Incentive spirometry. 4. Monitor for postop fever. 5. Could be discharged home from a pulmonary standpoint in the next 24 hours. VALERIA HARP MD DR: IKE/alfonso JOB#: [id number] / [id number] JACK
--- NOTE | 2016-09-03 12:25 | PDOC ---
PROGRESS NOTES Subjective Subjective POD#1 Up in chair neck/ incisional pain reports some intermittent tremor of right hand ambulated in alexis with PT Objective Objective Vital Signs Date Time Temp Pulse Resp B/P Pulse Ox O2 Delivery O2 Flow Rate FiO2 09/03/16 10:55 18 93 Nasal Cannula 3.0 09/03/16 07:00 99.2 111 126/69 99.2 Intake and Output 09/03/16 07:00 Intake Total 2360 ml Output Total 475 ml Balance 1885 ml Intake Oral 710 ml IV Total 1650 ml Output Urine Total 400 ml Estimated Blood Loss 75 ml # Voids 6 Physical Exam General: Alert, Oriented X3, Cooperative Neuro: Normal speech, Strength at 5/5 X4 ext Psych/Mental Status: Mental status NL Skin: Other (Dressing C,D,I, Flat) Assessment Assessment Problems Medical Problems: (1) Cervical spinal stenosis Status: Acute Plan Plan of Care encouraged increased activity as tolerated PT Pulmonary following as well Comment Review of Relevant I have reviewed the following items pacheco (where applicable) has been applied. Medications Current Medications Bacitracin 49560 unit/Sodium Chloride 1,000 ml @ 1,000 mls/hr 1X PERIOP ONCE IRR Last administered on 09/02/16 10:03; Start 09/02/16 at 06:00; Stop at 06:59; Status DC Vancomycin HCl 250 ml @ 250 mls/hr 1X PREOP PRN IV PRIOR TO PROCEDURE Last administered on 09/02/16 08:45; Start 09/02/16 at 06:00; Stop 09/02/16 at 18:00 ; Status DC Ondansetron HCl (Zofran) 4 mg PRN Q6HRS PRN IV NAUSEA/VOMITING; Start 09/02/16 at 07:00; Stop 09/03/16 at 06:59; Status DC Fentanyl Citrate (Fentanyl 2ml Vial) 25 mcg PRN Q5MIN PRN IV MILD PAIN; Start 09/02/16 at 07:00; Stop 09/03/16 at 06:59; Status DC Fentanyl Citrate (Fentanyl 2ml Vial) 50 mcg PRN Q5MIN PRN IV MODERATE PAIN; Start 09/02/16 at 07:00; Stop 09/03/16 at 06:59; Status DC Morphine Sulfate 1 mg 1 mg PRN Q10MIN PRN IV SEVERE PAIN Last administered on 13:45; Start 09/02/16 at 07:00; Stop 09/03/16 at 06:59; Status DC Lactated Ringer's (Iv Lactated Ringers) 1,000 ml @ 30 mls/hr Q24H IV Last administered on 09/02/16 13:19; Start 09/02/16 at 07:00; Stop 09/02/16 at 18:59 ; Status DC Lidocaine HCl 2 ml PRN 1X PRN ID PRIOR TO IV START; Start 09/02/16 at 07:00; Stop 09/03/16 at 06:59; Status DC Hydromorphone HCl (Dilaudid) 0.5 mg PRN Q10MIN PRN IV SEV PAIN, Second choice Last administered on 09/02/16 14:25; Start 09/02/16 at 07:00; Stop 09/03/16 at 06:59; Status DC Prochlorperazine Edisylate (Compazine) 5 mg PACU PRN PRN IV NAUSEA, MRX1; Start 09/02/16 at 07:00; Stop 09/03/16 at 06:59; Status DC Bupivacaine HCl/ Epinephrine Bitart (Sensorcain-Mpf Epi 0.5%-1:[id number]) 30 ml STK -MED ONCE .ROUTE Last administered on 09/02/16 10:03; Start 09/02/16 at 06:53 ; Stop 09/02/16 at 06:54; Status DC Gelatin (Gelfoam Size 100) 1 each STK-MED ONCE .ROUTE Last administered on 10:03; Start 09/02/16 at 06:53; Stop 09/02/16 at 06:54; Status DC Ketorolac Tromethamine (Toradol For Or Only) 60 mg STK-MED ONCE .ROUTE Last administered on 09/02/16 10:03; Start 09/02/16 at 06:53; Stop 09/02/16 at 06:54 ; Status DC Thrombin 20,000 unit STK-MED ONCE TP Last administered on 09/02/16 10:03; Start 09/02/16 at 06:53; Stop 09/02/16 at 06:54; Status DC Midazolam HCl (Versed) 2 mg STK-MED ONCE .ROUTE ; Start 09/02/16 at 08:06; Stop 09/02/16 at 08:07; Status DC Remifentanil HCl (Ultiva) 2 mg STK-MED ONCE IV ; Start 09/02/16 at 08:06; Stop 09/02/16 at 08:07; Status DC Glycopyrrolate (Robinul) 1 mg STK-MED ONCE .ROUTE ; Start 09/02/16 at 08:06; Stop 09/02/16 at 08:07; Status DC Desflurane (Suprane) 90 ml STK-MED ONCE IH ; Start 09/02/16 at 08:07; Stop 09/02 at 08:08; Status DC Dexamethasone Sodium Phosphate 20 mg 20 mg STK-MED ONCE .ROUTE ; Start 09/02/16 at 08:07; Stop 09/02/16 at 08:08; Status DC Propofol (Diprivan) 20 ml @ As Directed STK-MED ONCE IV ; Start 09/02/16 at 08: 07; Stop 09/02/16 at 08:08; Status DC Ondansetron HCl (Zofran) 4 mg STK-MED ONCE .ROUTE ; Start 09/02/16 at 08:07; Stop 09/02/16 at 08:08; Status DC Phenylephrine HCl (Jose Carlos-Synephrine Inj) 10 mg STK-MED ONCE .ROUTE ; Start at 08:07; Stop 09/02/16 at 08:08; Status DC Lidocaine HCl 100 mg 100 mg STK-MED ONCE .ROUTE ; Start 09/02/16 at 08:07; Stop 09/02/16 at 08:08; Status DC Propofol (Diprivan) 50 ml @ As Directed STK-MED ONCE IV ; Start 09/02/16 at 08: 07; Stop 09/02/16 at 08:08; Status DC Rocuronium [place] 50 mg 50 mg STK-MED ONCE .ROUTE ; Start 09/02/16 at 08:10; Stop 09/02/16 at 08:11; Status DC Propofol (Diprivan) 50 ml @ As Directed STK-MED ONCE IV ; Start 09/02/16 at 09: 56; Stop 09/02/16 at 09:57; Status DC Remifentanil HCl (Ultiva) 2 mg STK-MED ONCE IV ; Start 09/02/16 at 10:28; Stop 09/02/16 at 10:29; Status DC Sodium Chloride (Sodium Chloride) 50 ml STK-MED ONCE IJ ; Start 09/02/16 at 10: 28; Stop 09/02/16 at 10:29; Status DC Fentanyl Citrate (Fentanyl 5ml Vial) 250 mcg STK-MED ONCE .ROUTE ; Start at 10:30; Stop 09/02/16 at 10:31; Status DC Neomycin/ Polymyxin/ Bacitracin (Triple Antibiotic Ointment) 1 pkt STK-MED ONCE TP ; Start 09/02/16 at 14:05; Stop 09/02/16 at 14:06; Status DC Tamsulosin HCl (Flomax) 0.4 mg DAILY PO Last administered on 09/02/16 21:27; Start 09/02/16 at 15:00 Desvenlafaxine Succinate (Pristiq Er) 50 mg DAILY PO Last administered on 08:53; Start 09/03/16 at 09:00 Non-Formulary Medication 1,000 mg BID PO ; Start 09/02/16 at 21:00; Status UNV Multivitamins (Thera M Plus) 1 tab DAILY PO Last administered on 09/03/16 08: 55; Start 09/02/16 at 15:00 Pantoprazole Sodium (Protonix) 40 mg DAILYAC PO Last administered on 09/03/16 06:34; Start 09/03/16 at 07:30 Fentanyl Citrate (Fentanyl 2ml Vial) 50 mcg PRN Q2HR PRN IV PAIN; Start at 14:45 Fentanyl Citrate 25 mcg 25 mcg PRN Q2HR PRN IV PAIN; Start 09/02/16 at 14:45 Vancomycin HCl/ Sodium Chloride (Iv Sodium Chloride 0.9% 250ml) 250 ml @ 250 mls/hr 1X ONCE IV Last administered on 09/02/16 21:27; Start 09/02/16 at 21: 00; Stop 09/02/16 at 21:59; Status DC Acetaminophen (Tylenol) 650 mg PRN Q6HRS PRN PO MILD PAIN / TEMP; Start at 14:45 Al Hydroxide/Mg Hydroxide (Mylanta Plus Xs) 30 ml PRN Q3HRS PRN PO HEARTBURN / GAS; Start 09/02/16 at 14:45 Calcium Carbonate/ Glycine (Tums) 500 mg PRN Q3HRS PRN PO INDIGESTION; Start at 14:45 Diphenhydramine HCl (Benadryl) 25 mg PRN Q6HRS PRN PO ITCHING Last administered on 09/02/16 21:27; Start 09/02/16 at 14:45 Diphenhydramine HCl (Benadryl) 25 mg PRN Q6HRS PRN IV ITCHING; Start 09/02/16 at 14:45 Sodium Chloride 3 ml 3 ml QSHIFT PRN IV AFTER MEDS AND BLOOD DRAWS; Start 09/02 at 14:45 Potassium Chloride/Dextrose/ Sod Cl (KCl 20 Meq In D5W-1/2 NS) 1,000 ml @ 75 mls/hr [id number] IV Last administered on 09/02/16 19:27; Start 09/02/16 at 14:35 ; Stop 09/03/16 at 05:24; Status DC Oxycodone/ Acetaminophen (Percocet 5/325) 1 tab PRN Q4HRS PRN PO MILD PAIN, 1ST CHOICE; Start 09/02/16 at 14:45 Oxycodone/ Acetaminophen (Percocet 5/325) 2 tab PRN Q4HRS PRN PO MODERATE PAIN , SEVERE PAIN Last administered on 09/03/16 08:55; Start 09/02/16 at 14:45 Docusate Sodium (Colace) 100 mg BID PO Last administered on 09/03/16 08:55; Start 09/02/16 at 21:00 Magnesium Hydroxide (Milk Of Magnesia) 2,400 mg PRN Q12HR PRN PO CONSTIPATION; Start 09/02/16 at 14:45 Ondansetron HCl (Zofran) 4 mg PRN Q6HRS PRN IV NAUESA, 1ST CHOICE; Start at 14:45 Albuterol Sulfate (Ventolin Neb Soln) 2.5 mg Q6HRS NEB Last administered on 07:25; Start 09/02/16 at 18:00 Cyclobenzaprine HCl (Flexeril) 10 mg PRN Q8HRS PRN PO MUSCLE SPASMS Last administered on 09/03/16 09:50; Start 09/03/16 at 09:15 Oxycodone/ Acetaminophen (Percocet 10/325) 1 tab PRN Q4HRS PRN PO pain Last administered on 09/03/16 09:53; Start 09/03/16 at 09:15 Oxycodone/ Acetaminophen (Percocet 10/325) 2 tab PRN Q4HRS PRN PO pain; Start 09/03/16 at 09:15 Active Scripts Active Lortab 7.5-325 mg Tablet (Hydrocodone/Acetaminophen) 1 Each Tablet 1 Tab PO PRN Q6HRS PRN Reported Multivitamins (Multivitamin) 1 Each Tablet 1 Tab PO DAILY Tamsulosin Hcl 0.4 Mg Cap.er.24h 1 Cap PO DAILY Glucosamine (Glucosamine Sulfate 2KCL) 1,000 Mg Tablet 1,000 Mg PO BID Celebrex (Celecoxib) 200 Mg Capsule 1 Cap PO BID Omeprazole 40 Mg Capsule.dr 40 Mg PO DAILY Pristiq Er (Desvenlafaxine Succinate) 50 Mg Tab.er.24h 50 Mg PO DAILY Vitals/I & O Vital Sign - Last 24 Hours 09/02/16 09/02/16 09/02/16 09/02/16 12:52 12:52 13:07 13:20 Temp 97.5 97.5 Pulse 88 96 Resp 20 20 B/P 168/80 161/76 Pulse Ox 90 93 88 O2 Delivery Simple Mask Mask Simple Mask Nasal Cannula O2 Flow Rate 10 10 10 2.0 09/02/16 09/02/16 09/02/16 09/02/16 13:21 13:23 13:38 13:45 Pulse 90 84 Resp 20 20 20 20 B/P 144/79 144/79 Pulse Ox 88 91 91 92 O2 Delivery Nasal Cannula Nasal Cannula Nasal Cannula Nasal Cannula O2 Flow Rate 2.0 3 2 3.0 09/02/16 09/02/16 09/02/16 09/02/16 13:45 13:54 14:00 14:09 Temp 97.6 97.5 97.6 97.5 Pulse 85 91 Resp 20 20 20 20 B/P 172/70 147/91 Pulse Ox 91 90 92 84 O2 Delivery Nasal Cannula Nasal Cannula Nasal Cannula Nasal Cannula O2 Flow Rate 3.0 3 3.0 3 4/19/17 09/02/16 09/02/16 09/02/16 14:15 14:24 14:25 14:30 Temp 98.6 98.6 Pulse 78 88 Resp 20 20 18 B/P 145/78 149/84 Pulse Ox 92 85 90 O2 Delivery Nasal Cannula Nasal Cannula Nasal Cannula Nasal Cannula O2 Flow Rate 3 3 3.0 3.5 09/02/16 4 409/02/16 14:35 14:45 14:55 15:00 Pulse 94 92 Resp 18 16 B/P 147/71 154/87 Pulse Ox 94 89 86 O2 Delivery Nasal Cannula Nasal Cannula Nasal Cannula Nasal Cannula O2 Flow Rate 3.5 3.5 3.5 3.5 09/02/16 09/02/16 09/02/16 09/02/16 15:15 15:27 15:45 17:15 Pulse 93 105 108 Resp 16 18 20 B/P 141/70 133/97 134/87 Pulse Ox 89 90 92 92 O2 Delivery Nasal Cannula Nasal Cannula Nasal Cannula Nasal Cannula O2 Flow Rate 3.5 3.5 3.5 4.0 09/02/16 09/02/16 409/02/16 18:24 18:45 19:27 20:00 Temp 98.6 98.6 Pulse 113 Resp 20 20 B/P 133/88 Pulse Ox 93 92 O2 Delivery Nasal Cannula Nasal Cannula Nasal Cannula O2 Flow Rate 4.0 4.0 4.0 09/02/16 09/03/16 09/03/16 09/03/16 23:00 00:21 02:56 05:19 Temp 99.1 99.2 99.1 99.2 Pulse 99 111 Resp 18 20 20 B/P 128/72 124/62 Pulse Ox 95 97 93 94 O2 Delivery Nasal Cannula Nasal Cannula Nasal Cannula Nasal Cannula O2 Flow Rate 4.0 4.0 4.0 3.0 09/03/16 09/03/16 09/03/16 09/03/16 05:30 07:00 07:27 07:59 Temp 98.8 99.2 98.8 99.2 Pulse 103 111 Resp 24 20 B/P 123/65 126/69 Pulse Ox 94 93 93 O2 Delivery Nasal Cannula Nasal Cannula Nasal Cannula Nasal Cannula O2 Flow Rate 3.0 3.0 2.0 3.0 4/09/03/16 09/03/16 09/03/16 08:55 09:53 09:56 10:55 Resp Pulse Ox 93 93 93 O2 Delivery Nasal Cannula Nasal Cannula Nasal Cannula Nasal Cannula O2 Flow Rate 3.0 3.0 3.0 3.0 Intake and Output 09/02/16 09/02/16 09/03/16 15:00 23:00 07:00 Intake Total 1700 ml 660 ml Output Total 475 ml Balance 1225 ml 660 ml PANCHO LIVINGSTON MD Sep 03, 2016 12:25
--- NOTE | 2016-09-03 14:50 | PREOP HP ---
DATE OF SERVICE: 09/02/2016 DATE OF SURGERY: 08/28/2016. HISTORY OF PRESENT ILLNESS: The patient is a pleasant 61-year-old who underwent lumbar decompressive surgery in May of this year and did very well from that. He has noted increasing neck pain and bilateral shoulder pain more recently. He says pain radiates into both of his arms, and he notes bilateral hand numbness and pain. He says he feels as though he has developed some balance changes recently. There was no inciting event. He rates his pain as a 7 out of 10. Walking or reaching up increases his discomfort. He is taking hydrocodone. PAST MEDICAL HISTORY: Arthritis, left hip artificial joint, shingles, and Rodas esophagus. PAST SURGICAL HISTORY: Hip surgery and hip replacement in 1999, cholecystectomy in 1996, appendectomy in 2011, hernia repair 2014, and lumbar microdecompression at L2-L3 on the left 05/2016. FAMILY HISTORY: Cancer, heart disease, and hypertension. 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 . Denies substance abuse. Quit smoking more than 10 years ago. Smoked 1 pack per day for 10 years. Drinks alcohol one to two times per year. ALLERGIES: PENICILLIN. CURRENT MEDICATIONS: ____ , celecoxib, omeprazole, [place]. REVIEW OF SYSTEMS: A 12-point review of systems was obtained and is noncontributory except for that mentioned above. PHYSICAL EXAMINATION: NEUROSURGERY EXAMINATION: GENERAL APPEARANCE: Alert, pleasant, no acute distress. HEAD: Normocephalic and atraumatic. NECK AND THYROID: Mild to moderate tenderness with palpation of posterior cervical region. SKIN: Warm and dry. MUSCULOSKELETAL: Cervical paraspinal muscle bulk is normal, restricted range of motion of the cervical spine, normal range of motion of the upper extremities bilaterally. EXTREMITIES: No clubbing, cyanosis, or edema. NEUROLOGIC: Alert and oriented x 3, normal recent and remote memory, strength 5 out of 5 in bilateral upper and lower extremities, sensory was intact to light touch in the upper and lower extremities except for decreased involving both his forearms and hands to light touch, reflexes were absent in both upper and lower extremities, and unsteady gait. IMAGING REVIEWED: I reviewed his cervical MRI scan. On that study, there is mild central canal stenosis at C3-C4. There is severe central canal stenosis present at C4-C5 and C5-C6. There is flattening of the ventral surface of the cord without severe stenosis. There is multilevel foraminal narrowing present. Additionally, extending from the inferior aspect of C4 through the mild aspect of C5, there is symmetric T2 hyperintensity within the spinal cord strongly suggestive of edema versus myelomalacia. ASSESSMENT: 1. Spinal stenosis, cervical region. 2. Spondylosis with myelopathy, cervical region. 3. Radiculopathy, cervical region. PLAN: At this point, I feel his primary problem is related to cervical myelopathy and cervical spinal stenosis. My recommendation is that he undergo a cervical laminectomy extending from C3 through C6 with posterior instrumentation and fusion. I did discuss this with him. I outlined the risks of surgery as well as potentials benefits. I also explained the expected postoperative course. He would like to go ahead. We will make the arrangements. PANCHO LIVINGSTON MD DR: MANSI/alfonso JOB#: [id number] / [id number]
[2016-09-03 18:34] VITALS: BP 117/61
[2016-09-03 23:00] VITALS: BP 120/70
--- NOTE | 2016-09-04 00:34 | OP ---
DATE OF SURGERY: 09/02/2016 PREOPERATIVE DIAGNOSIS: Cervical spinal stenosis C3 through C6 POSTOPERATIVE DIAGNOSIS: Cervical spinal stenosis C3 through C6. OPERATION PERFORMED: Cervical laminectomy C3, C4, C5, and C6; lateral mass fusion with instrumentation C3, C4, C5, C6. The operation was done with multimodality monitoring, fluoroscopy, microscopy and microscopic dissection. DOCKET CLERK: Usman Faria MD, assisted with the surgery, assisted with the exposure, the laminectomy as well as the instrumentation and fusion and closure. OPERATIVE INDICATIONS: The patient is a very pleasant 61-year-old man who developed problems with cervical myelopathy. On imaging studies, he was found to have mild stenosis at C3-C4 and severe stenosis at C4-C5 and C5-C6 along with cord edema and/or myelomalacia at C4-C5. I recommended a cervical laminectomy. I spoke with him about the operation, the risks, the technique and the expected postoperative course and he wished to go ahead. One week previously, he had been positioned and had had difficulties with oxygenation and that operation was aborted and the patient was seen by Pulmonary Medicine and cleared. He now presents for surgery. DESCRIPTION OF PROCEDURE: Following general endotracheal anesthesia, the patient was positioned prone on the Bruno table in Flores pins in a neutral position. His posterior cervical region was then clipped, prepped and draped in the standard fashion. BRIJESH hose and AV impulse boots were applied for DVT prophylaxis. The microscope was draped. Fluoroscopy was draped and brought into the field. Multimodality monitoring was established including motor evoked potentials, somatosensory evoked potentials and EMG monitoring. Vancomycin 1 gram was given prior to surgery. Using fluoroscopic guidance, incision was made in the midline extending from C2 through C7. I dissected down through the skin and subcutaneous tissue and reflected the paraspinal muscles and placed Lambert retractors. The spinous processes, lamina and lateral masses were exposed at C3, C4, C5 and C6. We did use a midline avascular approach and there was minimal blood loss with the exposure. Using the high speed air drill and standard landmarks, I placed small openings in the posterior lamina of C3, C4, C5, C6, first on the left side and then on the right side and then placed 12 mm drill holes again using standard superolateral coordinates and direction in each of these openings without difficulty. I then placed 10 mm screws without difficulty. At this time, I also excoriated the facet. I then placed 60 mm rods on each side, which were bent appropriately, nuts were applied and torqued. I then brought in the microscope and the remainder of the surgery was done with microscope using microscopic technique. I used a high speed air drill, beginning on the left side beginning at C6 and created a trough which extended from C6, C5, C4 and C3; first on the left and then on the right side. I then used the 1 and 2 mm Kerrisons to open toward the midline posteriorly between C6 and C7 inferiorly and between C2 and C3 superiorly. I used ____ inferior aspect of spinous process of C6, lifted gently and began to free up and lift away the spinous processes at C6, C5, C4 and C3 respectively. These were removed and the portions of the lamina were then morcellated and packed into the facet joints bilaterally. I irrigated copiously. I did lay small pieces of Gelfoam in each lateral gutter. I used bone wax where appropriate. I removed the retractors very carefully and then obtained hemostasis in the muscle. Then the wound was closed after copious irrigation in layers with absorbable suture and the skin was closed with skin jackie. The patient was taken off the operating room table on to his bed. Pins were removed. He was awakened uneventfully with normal strength in his extremities. I was quite pleased with the surgery. PANCHO LIVINGSTON MD DR: MANSI/alfonso JOB#: [id number] / [id number]
[2016-09-04] MEDS: ALBUTEROL SULFATE 2.5 MG/3 ML NEBU. NEB SCH ×2 (01:48→07:25)
[2016-09-04 03:00] VITALS: BP 119/65
[2016-09-04 06:05] VITALS: BP 125/66
[2016-09-04] MEDS: PANTOPRAZOLE 40 MG TABLET.DR. PO SCH (06:19)
[2016-09-04] MEDS: OXYCODONE/APAP 10/325 TABLET. PO PRN ×3 (06:19→12:09)
--- NOTE | 2016-09-04 08:36 | PDOC ---
PULMONARY PROGRESS NOTES Subjective RN reports increase HR/low sats with ambulation no soa at rest Vitals Vital Signs Date Time Temp Pulse Resp B/P Pulse Ox O2 Delivery O2 Flow Rate FiO2 09/04/16 08:00 Nasal Cannula 2.0 09/04/16 07:20 18 93 09/04/16 06:05 99.0 84 125/66 99.0 General: Alert, No acute distress Lungs: Clear Cardiovascular: S1 Abdomen: Soft Neuro Exam: Alert Extremities: No Edema Skin: Warm Medications Active Scripts Medications Dose Route/Sig Days Date Category Multivitamins (Multivitamin) 1 Each Tablet 1 Tab PO DAILY 08/10/16 Reported Lortab 7.5-325 mg Tablet (Hydrocodone/Acetaminophen) 1 Each Tablet 1 Tab PO PRN Q6HRS PRN 06/11/16 Rx Tamsulosin Hcl 0.4 Mg Cap.er.24h 1 Cap PO DAILY 06/09/16 Reported Glucosamine (Glucosamine Sulfate 2KCL) 1,000 Mg Tablet 1,000 Mg PO BID 06/09/16 Reported Celebrex (Celecoxib) 200 Mg Capsule 1 Cap PO BID 06/28/14 Reported Omeprazole 40 Mg Capsule.dr 40 Mg PO DAILY 04/19/14 Reported Pristiq Er (Desvenlafaxine Succinate) 50 Mg Tab.er.24h 50 Mg PO DAILY 11/02/13 Reported Impression . 1. Mild postop hypoxia in the patient who is morbidly obese and most likely from the effect of anesthetic agents and possible micro- atelectasis. SOA noted with exertion today. will r/o PE 2. Highly suspected MALIK. The patient is morbidly obese and has witnessed apneas and snoring. His sleep study scheduled as an outpatient on 09/23. 3. Spinal stenosis , status post decompression surgery. 4. shakiness ,could be from Nebs Plan . 1. DC nebulizer treatment. 2. Gradually wean oxygen. 3. Incentive spirometry. 4. Monitor for postop fever. 5. CTA chest VALERIA HARP MD Sep 04, 2016 08:36
[2016-09-04 09:36] LABS: CALCIUM 8.6 mg/dL (8.5-10.1); CREATININE 1.1 mg/dL (0.7-1.3); GFR 67.8; POTASSIUM 3.8 mmol/L (3.5-5.1)
[2016-09-04] MEDS ORDERED: IOHEXOL 300 MG/ML 75 ML VIAL IV ONE (09:45)
[2016-09-04] MEDS ORDERED: CONTRAST GIVEN MC PRN (10:00)
[2016-09-04] MEDS: MULTIVITAMIN with MINERAL TABLET. PO SCH (10:40)
[2016-09-04] MEDS: DESVENLAFAXINE 25 MG TAB.ER.24H PO SCH (10:40)
[2016-09-04] MEDS: CYCLOBENZAPRINE 10 MG TABLET. PO PRN (10:40)
[2016-09-04] MEDS: TAMSULOSIN 0.4 MG CAP.ER.24H. PO SCH (10:41)
[2016-09-04] MEDS: DOCUSATE SODIUM 100 MG CAPSULE. PO SCH (10:41)
--- NOTE | 2016-09-04 10:49 | RAD ---
Indication shortness of breath. Axial contrast images through the chest were obtained. The examination was tailored for the detection of pulmonary embolus. 75 cc of Omnipaque 300 was administered intravenously. MIP images were generated and reviewed. Note is made of a previous examination 11/13/2013. Imaging through the upper abdomen shows no acute finding. There are cysts seen associated with both kidneys. The thoracic aorta appears unremarkable. There is no significant hilar or mediastinal adenopathy. The study, evaluating for pulmonary embolus, is slightly limited. There is not optimal opacification of the pulmonary arteries. No definite pulmonary emboli are seen and certainly large central pulmonary emboli are not suggested on this study. There are calcified granulomas noted in the mediastinum and in the right lung. There is no acute parenchymal infiltrate in either lung. A dominant soft tissue mass is not seen. IMPRESSION: Slightly limited study evaluating for pulmonary embolus. No definite pulmonary emboli seen. No acute finding is seen in the chest PQRS Compliance Statement: One or more of the following individualized dose reduction techniques were utilized for this examination: 1. Automated exposure control 2. Adjustment of the mA and/or kV according to patient size 3. Use of iterative reconstruction technique
--- NOTE | 2016-09-04 12:12 | DISCH ---
DISCHARGE INSTRUCTIONS Condition on Discharge Condition on Discharge: Stable Activity After Discharge Activity Instructions for Disc: Activity as tolerated, Avoid exertion Bathing Instructions: Shower-keep dressing dry Lifting Instructions after Dis: No heavy lifting, No pulling or pushing, Do not lift >10 pounds Driving Instructions after Dis: No driving for 2 weeks Diet after Discharge Additional Diet Restrictions: resume home diet Wound Incision Care Wound/Incision Care: Ice to area for comfort Other wound/incision instructi: may remove dressing if dry, may shower- no soaking Contacting the after DC Call your doctor for: Concerns you may have Follow-Up Follow up with: Dr. Thomas's nurse in 2 weeks [phone] TAMMI TURK [employer] SUPERINTENDENT Sep 04, 2016 12:12
[2016-09-04] MEDS ORDERED: OXYC10TA PO (12:16)
[2016-09-04] MEDS ORDERED: DOCU100C5 PO (12:16)
[2016-09-04] MEDS ORDERED: CYCL10TA2 PO (12:16)
[2016-09-04] MEDS ORDERED: METH-38 PO (12:17)
[2016-09-04 14:40] VITALS: BP 109/65
--- NOTE | 2016-09-04 16:32 | PATHOLOGY ---
PATHOLOGY REPORT * * * * * * * * FINAL DIAGNOSIS: Segments of fibrocartilaginous, fibroadipose, and skeletal muscle tissue and bone, cervical decompression: - Degenerative changes of fibrocartilaginous tissue. COMMENT: There is no evidence of an acute inflammatory process or malignancy. (JPM:; d/t: 09/04/16) REPORT ELECTRONICALLY SIGNED BY: Elfego Lambert M.D. DATE/TIME: 09/04/2016 16:31 * * * * * * * * GROSS PATHOLOGY: Received in formalin labeled "Bianca Vidales, cervical decompression" are multiple segments of shearer, rubbery, and gritty tissue admixed with bone. The specimen measures 6.7 x 5.2 x 1.9 cm in aggregate dimensions. The tissue is submitted A1 in cassette ^, following decalcification. (CAA; 09/03/2016) INITIAL CPT CODE(S): A; 77351, 23227 Professional services performed [place] [facility] [place] [address] Technical services performed by [facility] at [address] [place] [address]. SPECIMEN(S) RECEIVED: A.Cervical decompression CLINICAL HISTORY: Cervical stenosis, radiculopathy, spondylosis with myelopathy PATIENT: BIANCA VIDALES /AGE: 12 1955 (Age: 61) PATIENT #: [id number] ALT CASE #: SPECIMEN COLLECTION DATE: 09/02/2016 SPECIMEN RECEIVED DATE: 09/02/2016 [facility] - [address] [place] [address] - PHONE: [phone] * * * END OF REPORT * * *
== END 2016-09-04 14:50 | disposition home or self-care (01) | DRG 472 ==
LOC: SURG 06:50 → 4 SOUTHEST 13:10 → OBSVTOIN 14:40
PROVIDERS: ADMIT Neurological Surgery; ATTEND Neurological Surgery
PROC: 0RG20Z1 (ICD-10-PCS; principal; 2016-09-02 08:30)
DX: M47.10 Other spondylosis with myelopathy, site unspecified (principal); G95.89 Other specified diseases of spinal cord; J95.89 Other postprocedural complications and disorders of respiratory system, not elsewhere classified; Z68.41 Body mass index [BMI] 40.0-44.9, adult; M48.02 Spinal stenosis, cervical region; E66.01 Morbid (severe) obesity due to excess calories; G47.33 Obstructive sleep apnea (adult) (pediatric); K22.70 Barrett's esophagus without dysplasia; R09.02 Hypoxemia; Z96.649 Presence of unspecified artificial hip joint; M19.90 Unspecified osteoarthritis, unspecified site; M54.12 Radiculopathy, cervical region; Z82.49 Family history of ischemic heart disease and other diseases of the circulatory system; Z80.8 Family history of malignant neoplasm of other organs or systems; Z90.49 Acquired absence of other specified parts of digestive tract; Z87.891 Personal history of nicotine dependence; Z88.0 Allergy status to penicillin; Z80.9 Family history of malignant neoplasm, unspecified
CPT/HCPCS: 36415; 71020; 71275; 76000; 80048; 86850; 86900; 86901; 88304; 88311; 94250; 94620; 94640; 94760; C1713; G0379; J1100; J1170; J1885; J2250; J2270; J2405; J2704; J3010; J3370; J3490; J7030; J7050; Q0163; Q9967; 97110; 97116; 97530

== ENCOUNTER → 2017-01-12 | Outpatient (CLI) | payer BC ==
[~2017-01-12] MED LIST changes: -BACITRACIN 50,000 UNIT in IV NORMAL SALINE 1000ML BAG 1,000 ML IRR ONE; +CYCL10TA2 PO; +DOCU-109 PO; -DOCU-27 PO; +DOCU100C28 PO; -HYDR-2666 PO; +HYDR-2758 PO; +METH-38 PO; +OXYC10TA PO; -VANCOMYCIN 1GM IVPB FOR OMNI 250 ML IV PRN; +ZOLPIDEM 5 MG TABLET. PO ONE
--- NOTE | 2017-01-14 10:24 | SLEEP ---
DATE OF STUDY: 01/12/2017 ATTENDING PHYSICIAN: Dr. Martel. REFERRING PHYSICIAN: Dr. Kory Marcial. The patient is 61 years old who weighs 285 pounds with a BMI of 41. The patient's [place] score was 5. The patient underwent split night study at [facility]. During the night study, the patient spent 425 minutes in bed and slept for 242 minutes with low sleep efficiency of 57%. Sleep latency was 74 minutes, which was prolonged with an absent REM sleep. Sleep architecture showed increased stage I and stage II sleep, normal slow wave and absent REM sleep. During the initial diagnostic portion of the study, the patient slept for 138 minutes. During this time, the patient had 8 obstructive apneas, 4 mixed and no central apneas. There were 108 hypopneas. The patient's apnea hypopnea index was 52 per hour. REM and supine sleep was not observed. Review of nocturnal oximetry study revealed a mean oxygen saturation of 93% with lowest of 82%. 74% of time, oxygen saturation remained between 80% and 89%. EKG monitoring revealed normal sinus rhythm, average heart rate was 72 beats per minute, no sustained arrhythmias were observed. PLMs were seen at index of 1 per hour and none caused EEG arousals. The patient met the criteria for CPAP initiation. It was started at 5 cm of water, but he was unable to tolerate lower pressure and as a result, it was increased to 9 cm of water and then at a final pressure of 15 cm of water, the patient slept for 24 minutes. The patient had supine sleep throughout, but no REM sleep was observed. AHI was reduced to 5 per hour, mostly from leak. The patient used a medium size full face mask. The patient's oxygen saturation remained above 89% at the final pressure. IMPRESSION: 1. Severe sleep apnea-hypopnea syndrome with an AHI of 52 per hour. 2. Nocturnal hypoxia secondary to obstructive sleep apnea, but resolved with CPAP. 3. No clinically significant periodic limb movements. 4. Reduced sleep efficiency resulting from sleep onset and sleep maintenance insomnia. RECOMMENDATIONS: 1. CPAP at 15 cm water completely eliminated the patient's sleep apnea, and should be used on a nightly basis. 2. Follow up in 4-6 weeks to assess compliance with CPAP and to document clinical improvement. 3. Weight loss is strongly advised. 4. Avoid MANAGER PAYROLL depressants. 5. Cautioned regarding driving until symptoms of sleep apnea resolve with the use of CPAP. 6. The patient used a medium size full face mask. VALERIA HARP MD DR: IKE/alfonso JOB#: [id number] / [id number] JACK
== END | disposition home or self-care (01) ==
LOC: RT 18:20
PROVIDERS: ATTEND Internal Medicine Pulmonary Disease
DX: G47.33 Obstructive sleep apnea (adult) (pediatric) (principal)
CPT/HCPCS: 95810

== ENCOUNTER → 2017-02-11 | Outpatient (CLI) | payer BC ==
[~2017-02-11] MED LIST changes: +CLIN300C8 PO; -DICL100T2 PO; +DICL100T4 PO; +GADOBUTROL 7.5 MMOL/7.5 ML VIAL IV ONE; +METH-37 PO; +OMEP20CA9 PO; +OXYC-327 PO; -ZOLPIDEM 5 MG TABLET. PO ONE
--- NOTE | 2017-02-11 14:48 | RAD ---
Examination: 3 views of the cervical spine History: History of cervical fusion. Comparison: None available Findings: Cervical fusion hardware identified at the C3, C4, C5, C6 vertebral levels with bilateral pedicle screws. There is moderate intervertebral disc height loss identified at C3-C4, C4-C5, C5-C6 vertebral levels. Minimal 1 mm anterolisthesis of C4 on C5. Small anterior osteophyte formation identified at C4, C5, C6 vertebral levels. Impression: 1. Cervical hardware in place. 2. Multilevel degenerative changes most at C5-C6 vertebral level. Minimal anterolisthesis of C4 on C5.
--- NOTE | 2017-02-11 15:29 | RAD ---
MRI Lumbar Spine without and with contrast History: Chronic low back pain, left leg pain, previous surgery Technique: Multiplanar, multi sequential pre and postcontrast MR imaging was performed of the lumbar spine. Contrast: 13 cc Gadavist Comparison: September 05, 2015 Findings: Lumbar vertebral body stature is maintained. There is negligible posterior subluxation L2 relative to L3. There is advanced degenerative disc disease L2-3 through L4-5, to lesser degree at L5-S1. Conus terminates at L1-2. There is no nodular enhancement of the conus or cauda equina, no enhancement in the intervertebral disc spaces. L2-3 and L3-4 endplate edema is likely reactive/degenerative in etiology. There is mild lumbar levoscoliosis. There are T2 hyperintense foci of the bilateral kidneys, most likely cysts with the largest on the right up to 3.6 cm. T11-12: There is buckling of the ligamentum flavum and facet degenerative change. Spinal canal is not significantly narrowed. There is mild to moderate posterior narrowing of the left neural foramen. T12-L1: There is mild facet hypertrophic change and buckling of the ligamentum flavum. Spinal canal and neural foramina are adequate. L1-L2: Spinal canal and neural foramina are adequate. There is mild right facet hypertrophic change. L2-L3: There is left laminectomy defect. There is moderate to severe right facet degenerative change. There is minimal disc osteophyte complex. Spinal canal is overall adequate. There is again moderate to severe narrowing of the left neural foramen by facet hypertrophic change and disc osteophyte complex with contact of the dorsal surface exiting left L2 nerve root. Right neural foramen is adequate. L3-L4: There is again moderate to severe right and moderate left facet degenerative change. There is mild buckling of the ligamentum flavum. There is minimal disc osteophyte complex. There is mild narrowing of the far lateral recesses bilaterally as seen previously. There is minimal inferior narrowing of the neural foramina bilaterally. L4-L5: There is left laminectomy defect. Spinal canal is adequate. There is moderate right facet hypertrophic change. There is mild posterior narrowing of the right neural foramen, left neural foramen adequate. L5-S1: Spinal canal and right neural foramen are adequate. There is moderate to severe left facet degenerative change. Disc osteophyte complex in the inferior left neural foramen contributes to moderate narrowing as seen previously. Impression: 1. There is no significant lumbar spinal stenosis, mild narrowing of the far lateral recesses bilaterally at L3-4. 2. There is advanced degenerative disc disease L2-3 through L4-5 and to lesser degree at L5-S1. There is multilevel spondylosis. 3. There is neural foramina compromise as stated greatest on the left at L2-3, to a lesser degree on the left at L5-S1. 4. There are likely cysts of the bilateral kidneys. Electronically signed by: Oren Barton MD (02/11/2017 3:26 PM) [id number]
== END | disposition home or self-care (01) ==
LOC: MRI 12:57
PROVIDERS: ATTEND Neurological Surgery
DX: M54.16 Radiculopathy, lumbar region (principal); G89.29 Other chronic pain; M79.605 Pain in left leg; M51.36 Other intervertebral disc degeneration, lumbar region; M51.37 Other intervertebral disc degeneration, lumbosacral region; Z98.1 Arthrodesis status
CPT/HCPCS: 72040; 72158; A9585

== ENCOUNTER → 2017-03-04 | Outpatient (CLI) | payer BC ==
[~2017-03-04] MED LIST changes: -GADOBUTROL 7.5 MMOL/7.5 ML VIAL IV ONE; +IOHEXOL 180 MG/ML 10 ML VIAL. ONE; +LORA10TA68 PO; +methylPREDNISolone ACETATE 40 MG/ML VIAL. ONE; +methylPREDNISolone ACETATE 80 MG/ML VIAL. ONE
--- NOTE | 2017-03-04 11:25 | PAIN ---
DATE OF SERVICE: 03/04/2017 PROGRESS NOTE FOR PAIN CLINIC DIAGNOSES: Lumbar radiculopathy with lumbar degenerative disk disease and post-lumbar laminectomy syndrome. HISTORY OF PRESENT ILLNESS: The patient is a 61-year-old male who returns for followup, last seen in June 2016. The patient did well with some cervical epidural injections. He since had surgery on his low back with decompression at the L2-L3 level on the left with initially good results and the pain returning now in the low back and the left leg, mostly in the anterior thigh, lateral thigh, medial thigh and anterior medial lower leg as well but mostly in the anterior thigh itself. The patient reports it has been getting worse with time. No specific new injury or accident that he is aware of. Has had increased pain with the ability to ambulate, which is becoming more and more difficult. The patient reports no new motor or sensory deficits, reports the pain is constant, cramping, aching, dull, sharp, tight, radiating in becoming more unbearable, the patient reports 8 on a scale of 10 at its worst, 5 on average and a 4 at least and 4 today. The patient reports it awakens him from sleep occasionally but not every night and he sleeps most of the time, about 8 hours at a time. He can reposition, get back to sleep if needs to. The patient reports no new motor or sensory deficits and no new bowel or bladder incontinence. Had a new MRI scan of 02/11/2017 and it is showing previous left laminectomy defect at L2-L3 with [id number] right facet degenerative changes, uvzvigsj-lu-rnxfrr narrowing of the left neural foramen by facet hypertrophy change and disk osteophyte complex with contacts in the dorsal surface exiting left L2 nerve root. The patient's past medical history is significant for total hip replacement, cholecystectomy, appendectomy, previous lumbar laminectomy as well as the most recent one and also had recent cervical fusion. The patient's medications were updated and well documented on the patient's chart. ALLERGIES: The patient is allergic to PENICILLIN. REVIEW OF SYSTEMS: The patient's review of systems is positive for those items mentioned in history of present illness. All systems reviewed and are otherwise negative. It is complete and well documented on the patient's chart. PHYSICAL EXAMINATION: VITAL SIGNS: Today, the patient's blood pressure is 139/83, pulse is 81, respirations are 16, temperature 98.3 degrees Fahrenheit, height is 5 feet 11 inches and weight is 300 pounds. GENERAL: The patient is awake, alert, oriented, appropriate and very pleasant demeanor. HEENT: Head shows normocephalic and atraumatic. Extraocular movements are intact and symmetrical. Oral cavity shows mucous membranes moist and pink. Dentition is intact. NECK: Shows anterior throat supple without palpable lymphadenopathy noted. Swallow reflex is symmetrical. CHEST: Shows normal on inspection. Breath sounds clear to auscultation bilaterally. HEART: Shows S1 and S2 clear. No murmurs auscultated. ABDOMEN: Obese, soft, nontender and nondistended. No palpable organomegaly is noted. No rebound or guarding demonstrated. BACK: Shows spine grossly in the midline, flattening of the lumbar lordotic curvature is noted but normal thoracic kyphosis and normal cervical lordosis. On inspection, the patient's lumbar paraspinous muscles are symmetrical without atrophy or hypertrophy. Well-healed surgical scarring is noted in the midline with palpation shows some moderate tenderness with palpation in the middle distribution of paraspinous muscles diffusely as well as the lower lumbar distribution. No radiation. No trigger points. The patient has good rotational motion of the lumbar spine, both laterally as well as extension and flexion . EXTREMITIES: Lower extremities show deep tendon reflexes at 1+ in the patellar and tendo-calcaneus tendons. Motor exam is strong with 5/5 dorsiflexion, extension, quadriceps and hamstring flexion. Peripheral pulses are 1+. No peripheral edema is noted. Options were discussed with the patient and the patient's old chart was reviewed as his current medication regimen updated. Current review of systems updated today as well and we will proceed with a lumbar epidural steroid injection today with fluoroscopic guidance. Risks were again discussed including but not limited to bleeding, infection, possibility of epidural hematoma, subsequent neurologic compromise, dural puncture, headaches, spinal cord and/or nerve damage, side effects of steroid medication and poor results regarding pain control. The patient understands and wishes to proceed. The patient will return to clinic in approximately 2 weeks for followup, was counseled on return appointment, activity level and side effects to be aware of. DIAGNOSIS: Lumbar radiculopathy with lumbar degenerative disk disease and post-lumbar laminectomy syndrome. PROCEDURE: Lumbar epidural steroid injection in translaminar approach at the L3-L4 level using a C-arm fluoroscopic guidance under sterile prep and drape using local anesthetic. MEDICATION INJECTED: A total of 120 mg Depo-Medrol plus a total of 10 mL of preservative-free normal saline and 2 mL of Isovue for contrast. CONDITION AT DISCHARGE: Stable. The patient tolerated procedure well, had no complications. LOUISE FIGUEROA MD DR: MICHAEL/alfonso JOB#: [id number] / [id number]
== END | disposition home or self-care (01) ==
LOC: PNCL 07:38
PROVIDERS: ATTEND Anesthesiology
DX: M51.16 Intervertebral disc disorders with radiculopathy, lumbar region (principal); M96.1 Postlaminectomy syndrome, not elsewhere classified; K21.9 Gastro-esophageal reflux disease without esophagitis; F41.9 Anxiety disorder, unspecified; F32.9 Major depressive disorder, single episode, unspecified; Z72.0 Tobacco use; Z88.0 Allergy status to penicillin; Z86.69 Personal history of other diseases of the nervous system and sense organs; Z90.49 Acquired absence of other specified parts of digestive tract; Z96.642 Presence of left artificial hip joint; Z87.39 Personal history of other diseases of the musculoskeletal system and connective tissue; Z82.49 Family history of ischemic heart disease and other diseases of the circulatory system
CPT/HCPCS: 62323; J1030; J1040

== ENCOUNTER → 2017-11-26 | Day surgery (SDC) | payer BC ==
[~2017-11-26] MED LIST changes: -ACET500T68 PO; -CELE200C PO; -CLIN300C8 PO; -CYCL10TA2 PO; -DESV50TA PO; -DICL100T4 PO; -DOCU-109 PO; -DOCU100C28 PO; -GLUC100018 PO; -HYDR-2679 PO; -HYDR-2758 PO; -IOHEXOL 180 MG/ML 10 ML VIAL. ONE; +LIDOCAINE 2% PF Vial for OR 5 ML VIAL.; -LORA10TA68 PO; -METH-37 PO; -METH-38 PO; -MULT1TAB52 PO; -NAPR220C4 PO; -OMEP20CA9 PO; -OMEP40CA5 PO; -OXYC-327 PO; -OXYC10TA PO; +PROPOFOL 40 ML IV; -TAMS0.4C2 PO; -methylPREDNISolone ACETATE 40 MG/ML VIAL. ONE; -methylPREDNISolone ACETATE 80 MG/ML VIAL. ONE
[2017-11-26] MEDS: IV RINGERS,LACTATED 1000ML 1,000 ML IV (06:30)
== END | disposition home or self-care (01) ==
LOC: ENDOS 05:50
DX: Z12.11 Encounter for screening for malignant neoplasm of colon (principal); D12.5 Benign neoplasm of sigmoid colon; D12.0 Benign neoplasm of cecum; K57.30 Diverticulosis of large intestine without perforation or abscess without bleeding; K64.0 First degree hemorrhoids; K21.0 Gastro-esophageal reflux disease with esophagitis; Z88.0 Allergy status to penicillin; G47.33 Obstructive sleep apnea (adult) (pediatric); Z79.899 Other long term (current) drug therapy; E66.9 Obesity, unspecified; Z98.1 Arthrodesis status; Z85.828 Personal history of other malignant neoplasm of skin; F32.9 Major depressive disorder, single episode, unspecified; M19.90 Unspecified osteoarthritis, unspecified site; Z83.71 Family history of colonic polyps; Z83.3 Family history of diabetes mellitus; Z82.49 Family history of ischemic heart disease and other diseases of the circulatory system; Z82.3 Family history of stroke; Z87.891 Personal history of nicotine dependence; Z90.49 Acquired absence of other specified parts of digestive tract; Z98.890 Other specified postprocedural states; F41.9 Anxiety disorder, unspecified; Z96.642 Presence of left artificial hip joint
CPT/HCPCS: 43239; 45380; 45385; 88305; J2001; J2704

== ENCOUNTER → 2018-05-18 | Outpatient (CLI) | payer BC ==
[2017-11-26 08:11] VITALS: BP 117/57
[~2018-05-18] MED LIST changes: +ACET500T68 PO; +CELE200C PO; +CLIN300C8 PO; +CYCL10TA2 PO; +DESV50TA PO; +DICL100T4 PO; +DOCU-109 PO; +DOCU100C28 PO; +GABA300C18 PO; +GLUC100018 PO; +HYDR-2679 PO; +HYDR-2761 PO; -LIDOCAINE 2% PF Vial for OR 5 ML VIAL.; +LORA10TA68 PO; +METH-37 PO; +METH-38 PO; +MULT1TAB52 PO; +NAPR220C4 PO; +OMEP20CA9 PO; +OMEP40CA5 PO; +OXYC10TA PO; +OXYC1TAB19 PO; -PROPOFOL 40 ML IV; +TAMS0.4C2 PO; +TEST5GEL TP
--- NOTE | 2018-05-18 12:13 | RAD ---
MR of the left shoulder Indication: Chronic left shoulder pain. History of steroid injections.. Comparison: None are available. Technique: Standard multiplanar sequences are obtained. Findings: Artifact: Mild motion degradation. Acromioclavicular joint: Primary osteoarthritis with undersurface mass effect and osteophytes. Rotator cuff: * Supraspinatus-infraspinatus tendon: Partial-thickness undersurface tear of the supraspinatus tendon, about 90 percent deep, measures 15 mm AP diameter. No complete through and through rupture. Generalized tendinosis. Subtendinous reactive change at the greater tuberosity. * Subscapularis tendon: Tendinosis, no high-grade tear. * Muscle bulk: Mild volume loss. * Subacromial subdeltoid bursa: No significant effusion. Fluid: No significant glenohumeral effusion. Glenohumeral cartilage: Chondromalacia. Subchondral cysts at the posterior glenoid. Labrum: Signal at the base of the superior labrum compatible with mild degenerative tearing. Milder signal at the base of the posterior labrum. Biceps tendon: Tendinosis, with partial tearing. The tendon is flattened and subluxed medially, perched over the lesser tuberosity. Bones: No lesion or acute fracture. Soft tissue: No acute findings.. Impression: 1. Small deep undersurface tear of the supraspinatus tendon. Rotator cuff tendinosis. 2. Biceps tendinosis with partial tearing and medial subluxation. 3. Degeneration versus degenerative tearing at the superior and posterior labrum. Electronically signed by: Leonides Smith MD (05/18/2018 12:09 PM) [facility]
== END | disposition home or self-care (01) ==
LOC: MRI 09:56
PROVIDERS: ATTEND Orthopaedic Surgery Sports Medicine
DX: S46.212A Strain of muscle, fascia and tendon of other parts of biceps, left arm, initial encounter (principal); M75.112 Incomplete rotator cuff tear or rupture of left shoulder, not specified as traumatic; M19.012 Primary osteoarthritis, left shoulder; M94.212 Chondromalacia, left shoulder; X58.XXXA Exposure to other specified factors, initial encounter; Y93.89 Activity, other specified; Y92.89 Other specified places as the place of occurrence of the external cause; Y99.8 Other external cause status
CPT/HCPCS: 73221

== ENCOUNTER 2019-04-22 09:56 | Emergency (ER) | payer MEDICARE ==
[~2019-04-22] VITALS: Ht 177.8 cm; Wt 120.2 kg
[~2019-04-22 09:56] MED LIST changes: -DICL100T4 PO; +DICL100T68 PO; +OMEP-229 PO; -OMEP20CA9 PO; +OMEP40CA45 PO; -OMEP40CA5 PO
[2019-04-22 10:10] VITALS: BP 143/86
--- NOTE | 2019-04-22 11:51 | RAD ---
Study: HIP LEFT 2V WITH PELVIS Indication: Pain. No reported injury. Comparison: 06/01/2018 Findings: Status post total left hip arthroplasty. The femoral head component is well-seated within the acetabular cup. The hardware is intact and without loosening. No periprosthetic fracture. No acute fracture or malalignment seen at the partially evaluated right hip. Mild/moderate right hip arthrosis. Advanced degenerative changes partially evaluated at the lower lumbar spine. Impression: 1. Total left hip arthroplasty without hardware complication or periprosthetic fracture. No acute fracture seen elsewhere throughout the pelvis. 2. Mild/moderate right hip arthrosis. Advanced partially evaluated degenerative changes at the lower lumbar spine. Electronically signed by: MICHAEL ROSALES MD (04/22/2019 11:49 AM) [facility]
--- NOTE | 2019-04-22 12:21 | RAD ---
Examination: VENOUS LOWER EXTREMITY LEFT History: Left-sided pain Comparison/Correlation: None FINDINGS: Left lower extremity duplex venous ultrasound exam was performed. Grayscale, color Doppler, and spectral Doppler imaging was performed. Compression and augmentation was performed. The left common femoral vein, superficial femoral vein, popliteal vein, and greater saphenous vein are normal with no evidence of deep venous thrombus. Normal compressibility and augmentation is evident. Visualized left calf veins are unremarkable. Right common femoral vein was imaged and is unremarkable IMPRESSION: Normal left lower extremity duplex ultrasound exam. No evidence of deep venous thrombus involving the left lower extremity. Electronically signed by: Jose Miguel Fisher MD (04/22/2019 12:18 PM) [facility]
[2019-04-22] MEDS ORDERED: ACET-704 PO (12:34)
--- NOTE | 2019-04-22 12:35 | PHYS DOC ---
Past Medical History Past Medical History: Anxiety, Arthritis, Cancer, Depression, GERD Additional Past Medical Histor: skin ca, ENLARGED PROSTATE, NEUROPATHY Past Surgical History: Appendectomy, Cholecystectomy, Hip Replacement Additional Past Surgical Histo: left hip, SPINAL FUSION Alcohol Use: Rarely Drug Use: None Adult General Chief Complaint Chief Complaint: HIP PAIN HPI HPI Patient is a 63 year old patient with history of GERD, anxiety and depression, neuropathy who presents with complaint of left thigh pain. Patient complaining o f nontraumatic left type pain since yesterday that usually happen in sitting position and improved with walking and bearing weight. Patient denies focal neuro deficit, fever and chills, history of the same pain. Patient states he aafs-nbf-xlbklhd pain medication with improvement of the pain 12/24 his pain 08/24. He denies history of the same problem, history of DVT and PE, recent imm obilization. Review of Systems Review of Systems Constitutional: Denies fever or chills [] Eyes: Denies change in visual acuity, redness, or eye pain [] HENT: Denies nasal congestion or sore throat [] Respiratory: Denies cough or shortness of breath [] Cardiovascular: No additional information not addressed in HPI [] GI: Denies abdominal pain, nausea, vomiting, bloody stools or diarrhea [] : Denies dysuria or hematuria [] Musculoskeletal: Denies back pain, reports joint pain [] Integument: Denies rash or skin lesions [] Neurologic: Denies headache, focal weakness or sensory changes [] Endocrine: Denies polyuria or polydipsia [] All other systems were reviewed and found to be within normal limits, except as documented in this note. Allergies Allergies Allergies Coded Allergies Type Severity Reaction Last Updated Verified Penicillins Allergy Intermediate Rash 09/02/16 Yes Physical Exam Physical Exam Constitutional: Well developed, well nourished, mild distress, non-toxic appearance. [] HENT: Normocephalic, atraumatic. Eyes: PERRLA, EOMI, conjunctiva normal, no discharge. [] Neck: Normal range of motion, no tenderness, supple, no stridor. [] Cardiovascular:Heart rate regular rhythm, no murmur [] Lungs & Thorax: Bilateral breath sounds clear to auscultation [] Back: No tenderness, no CVA tenderness. [] Extremities: Left extremity without deformity or edema or tenderness, normal range of motion. Neurologic: Alert and oriented X 3, no focal deficits noted. [] Psychologic: Affect normal, judgement normal, mood normal. [] Current Patient Data Vital Signs Vital Signs Date Time Temp Pulse Resp B/P (MAP) Pulse Ox O2 Delivery O2 Flow Rate FiO2 04/22/19 10:10 98.7 68 14 143/86 (105) 95 Room Air 98.7 EKG EKG [] Radiology/Procedures Radiology/Procedures [][address] [address] IMAGING REPORT Signed PATIENT: BIANCA VIDALES ACCOUNT: [id number] : 1955 LOCATION: ER AGE: 63 SEX: M EXAM STATUS: REG ER ORD. PHYSICIAN: DEBORAH CEDENO MD REASON: left thigh pain, no injury PROCEDURE: VENOUS LOWER EXTREMITY LEFT Examination: VENOUS LOWER EXTREMITY LEFT History: Left-sided pain Comparison/Correlation: None FINDINGS: Left lower extremity duplex venous ultrasound exam was performed. Grayscale, color Doppler, and spectral Doppler imaging was performed. Compression and augmentation was performed. The left common femoral vein, superficial femoral vein, popliteal vein, and greater saphenous vein are normal with no evidence of deep venous thrombus. Normal compressibility and augmentation is evident. Visualized left calf veins are unremarkable. Right common femoral vein was imaged and is unremarkable IMPRESSION: Normal left lower extremity duplex ultrasound exam. No evidence of deep venous thrombus involving the left lower extremity. Electronically signed by: Jose Miguel Roberts MD (04/22/2019 12:18 PM) [facility] DICTATED and SIGNED BY: JOSE MIGUEL ROBERTS MD DATE: 04/22/19 [id number] [place], [place] [id number] IMAGING REPORT Signed PATIENT: BIANCA VIDALES ACCOUNT: [id number] : 1955 LOCATION: ER AGE: 63 SEX: M EXAM STATUS: REG ER ORD. PHYSICIAN: DEBORAH CEDENO MD REASON: pain, no injury PROCEDURE: HIP LEFT 2V WITH PELVIS Study: HIP LEFT 2V WITH PELVIS Indication: Pain. No reported injury. Comparison: 06/01/2018 Findings: Status post total left hip arthroplasty. The femoral head component is well-seated within the acetabular cup. The hardware is intact and without loosening. No periprosthetic fracture. No acute fracture or malalignment seen at the partially evaluated right hip. Mild/moderate right hip arthrosis. Advanced degenerative changes partially evaluated at the lower lumbar spine. Impression: 1. Total left hip arthroplasty without hardware complication or periprosthetic fracture. No acute fracture seen elsewhere throughout the pelvis. 2. Mild/moderate right hip arthrosis. Advanced partially evaluated degenerative changes at the lower lumbar spine. Electronically signed by: MICHAEL ROSALES MD (04/22/2019 11:49 AM) [facility] DICTATED and SIGNED BY: MICHAEL ROSALES MD DATE: 04/22/19 1149 Course & Med Decision Making Course & Med Decision Making Pertinent Imaging studies reviewed. (See chart for details) Evaluation of patient in ER showed 63-year-old male patient with history of arthritis complains of left eye pain since yesterday. Patient had unremarkable physical exam and x-ray of hip and venous ultrasound of left lower extremity. Patient was advised to continue his home pain medication and follow up with his primary care physician. Prescription for Tylenol 3 was given. Dragon Disclaimer Dragon Disclaimer This electronic medical record was generated, in whole or in part, using a voice recognition dictation system. Departure Departure Impression: Primary Impression: Thigh pain Disposition: HOME, SELF-CARE (at 1232) Condition: STABLE Referrals: NAJMA FOFANA MD (PCP) Patient Instructions: Arthralgia, Muscle Strain Additional Instructions: Continue home medication Follow-up with your primary care physician in 2 or 3 days Return to ER if not getting better Scripts Acetaminophen With Codeine (TYLENOL WITH CODEINE #3 TABLET) 1 Each Tablet 1 TAB PO PRN Q6HRS PRN for PAIN, #10 TAB Prov: DEBORAH CEDENO MD 04/22/19 Problem Qualifiers Primary Impression: Thigh pain Laterality: left Qualified Codes: M79.652 - Pain in left thigh DEBORAH CEDENO MD Apr 22, 2019 12:34
== END 2019-04-22 12:39 | disposition home or self-care (01) ==
LOC: ER 09:56
DX: M79.652 Pain in left thigh (principal); M16.12 Unilateral primary osteoarthritis, left hip; K21.9 Gastro-esophageal reflux disease without esophagitis; Z96.642 Presence of left artificial hip joint; Z90.49 Acquired absence of other specified parts of digestive tract; Z90.89 Acquired absence of other organs; Z88.0 Allergy status to penicillin
CPT/HCPCS: 73502; 93971; 99284-25

== ENCOUNTER → 2019-04-27 | Outpatient (CLI) | payer MEDICARE ==
[2019-04-22 10:10] VITALS: BP 143/86
[~2019-04-27] MED LIST changes: +ACET-704 PO
--- NOTE | 2019-04-27 18:23 | RAD ---
CT left femur without contrast HISTORY: Left hip effusion and hip pain. Left thigh pain. COMPARISON: Left hip x-rays April 22, 2019. FINDINGS: Left hip total arthroplasty. No periprostatic fracture. There is mild asymmetric narrowing of the upper joint space of the arthroplasty indicating mild wearing of the polyethylene between the femoral head and acetabular cup prosthesis. There is circumscribed lobular bone lysis along the lateral acetabulum underlying the acetabular cup prosthesis likely representing loosening at a 3 x 1 cm zone. Separately at the trochanteric femur surrounding the femoral intramedullary stem there is a zone of well-defined bone resorption surrounding the hardware with a thin rim of cortical bone with a thickness of lucency of 1.3 cm, the features are also most typical of loosening and not typical of a surgical defect. The distal intramedullary stem at the femur is intact without loosening. No periprosthetic fracture. No dislocation. Remainder of the femur is intact. Osseous loose body posterior knee. Left common iliac artery aneurysm diameter 2.4 cm. There is mild fatty atrophy of the left gluteus muscles. IMPRESSION: 1. Circumscribed bone lysis of the lateral acetabulum underlying the cup prosthesis and separately at the trochanteric femur surrounding the intramedullary stem suspicious for areas of hardware loosening. No periprosthetic fracture. See discussion above. 2. Left common iliac artery aneurysm diameter 2.4 cm. Exposure: One or more of the following individualized dose reduction techniques were utilized for this examination: 1. Automated exposure control 2. Adjustment of the mA and/or kV according to patient size 3. Use of iterative reconstruction technique Electronically signed by: David Vanessa MD (04/27/2019 6:20 PM) [id number]
== END | disposition home or self-care (01) ==
LOC: CT 10:26
PROVIDERS: ATTEND Internal Medicine
DX: I72.3 Aneurysm of iliac artery (principal); M62.58 Muscle wasting and atrophy, not elsewhere classified, other site; M25.452 Effusion, left hip
CPT/HCPCS: 73700

== ENCOUNTER → 2019-05-23 | Outpatient (CLI) | payer MEDICARE ==
[~2019-05-23] MED LIST changes: -OMEP-229 PO; +OMEP20CA16 PO
--- NOTE | 2019-05-24 10:33 | KCIC ---
MRI Lumbar Spine without contrast History: Lumbar radiculopathy, absent left knee reflex, lumbar myelopathy, previous back surgery Technique: Multiplanar, multi sequential noncontrast MR imaging was performed of the lumbar spine. Comparison: February 11, 2017 Findings: Lumbar vertebral body stature is maintained. There is again advanced degenerative disc disease L2-3 through L4-5, to a lesser degree at other levels. There is again negligible posterior subluxation L2 relative L3. Conus terminates near L1-L2. There is trace L2-3 and L3-4 endplate edema likely reactive/degenerative in etiology, decreased in interval. There is very mild levoscoliosis centered near L4. There is again T2 hyperintense foci of the visualized bilateral kidneys which are not fully included, statistically most likely cysts. L1-L2: There is now broad posterior bulge about 2-3 mm AP. There is again mild facet degenerative change and buckling of the ligamentum flavum. There is increased mild narrowing of the far lateral recesses greater on the left. Neural foramina are adequate. L2-L3: There is again left laminectomy defect, again thin epidural collection in the left lateral recess extending to the parasagittal region about 3 mm greatest transverse thickness by about 10 mm AP. There is similar degree of mild distortion of the thecal sac in the left lateral recess without significant spinal stenosis, overall mild narrowing of the far left lateral recess from posteriorly. There is again facet degenerative change. There is again disc osteophyte complex slightly indenting the ventral thecal sac. There is moderate to severe narrowing of the left neural foramen with contact of the exiting left L2 nerve root, narrowing by facet and disc osteophyte complex. There is mild narrowing of the right neural foramen primarily from posteriorly by facet. L3-L4: There is again disc osteophyte complex. There is again facet degenerative change bilaterally greater on the right and mild buckling of the ligamentum flavum. There is minimal narrowing of the far left lateral recess, central canal not significantly narrowed. There is mild narrowing of the left neural foramen, [id number]-[id number]-[id number] narrowing on the right by disc osteophyte complex and facet. L4-L5: There is again left laminectomy defect. There is very minimal disc osteophyte complex. Spinal canal is not significantly narrowed. There is again facet degenerative change greater on the right. Left neural foramen is overall adequate, again mild narrowing of the right neural foramen by disc osteophyte complex and facet L5-S1: There is again facet degenerative change on the left. Spinal canal is adequate. Disc osteophyte complex and facet degenerative change contributes to moderate to severe narrowing of the left neural foramen with contact undersurface exiting left L5 nerve root by disc osteophyte complex. Right neural foramen is overall adequate. Impression: 1. Comparing with the January 2017 exam, there is now posterior bulge at L1-L2 with resultant mild narrowing of the far lateral recesses greater on the left. Otherwise findings are fairly similar compared with the previous exam. There is again multilevel degenerative disc disease greatest L2-3 through L4-5 with spondylosis also greatest at these levels. There is residual L2-3 and L3-4 endplate edema likely reactive/degenerative in etiology. There is other variable lateral recess stenosis as described. There is multilevel lumbar neural foramina compromise as described, greatest on the left at L2-3 and L5-S1 and on the right at L3-4. 2. Not fully evaluated, there are T2 hyperintense foci of the bilateral kidneys more likely due to cysts. Electronically signed by: Oren Barton MD (05/24/2019 10:30 AM) [id number]
== END | disposition home or self-care (01) ==
LOC: KCIC MRI 15:05
PROVIDERS: ATTEND Physician Assistant Medical
DX: M51.06 Intervertebral disc disorders with myelopathy, lumbar region (principal); M51.16 Intervertebral disc disorders with radiculopathy, lumbar region; M47.27 Other spondylosis with radiculopathy, lumbosacral region; M48.07 Spinal stenosis, lumbosacral region; R29.2 Abnormal reflex; Z98.1 Arthrodesis status
CPT/HCPCS: 72148

== ENCOUNTER → 2019-06-30 | Outpatient (CLI) | payer MEDICARE ==
[~2019-06-30] MED LIST changes: +FINA5TAB4 PO; +IOHEXOL 180 MG/ML 10 ML VIAL. ONE; +TADA5TAB PO; +methylPREDNISolone ACETATE 40 MG/ML VIAL. ONE; +methylPREDNISolone ACETATE 80 MG/ML VIAL. ONE
--- NOTE | 2019-06-30 11:24 | PAIN ---
DATE OF SERVICE: 06/30/2019 PROGRESS NOTE FOR PAIN CLINIC DIAGNOSES: 1. Lumbar radiculopathy, lumbar degenerative disk disease, lumbar post-laminectomy syndrome. 2. Cervical radiculopathy with cervical degenerative disk disease. HISTORY OF PRESENT ILLNESS: The patient is a 64-year-old male who returns for followup status post lumbar epidural steroid injections, last seen in 03/2017. The patient did very well until the last few weeks. He was increasing his activity at the gym, working out with higher impact classes and exercises, had some significant pain increasing over the past month or so in the low back and left lower extremity. It was previously in the posterior gluteus and into the lateral anterior thigh, anterior medial thigh, and groin on the left side. The patient reports it is worse with walking, standing, changing positions, better with sitting or lying down, generally does not awaken him from sleep at night and usually only when he is on his feet and again exacerbated by some recent increasing exercise. The patient reports no new motor or sensory deficits. No new bowel or bladder incontinence. The patient did have a new MRI scan of the lumbar spine, which we reviewed with him today as well showing some residual L2-L3, L3-L4 endplate edema, other variable recess stenosis, multilevel neural foraminal compromise, greatest on the left at L2-L3 and L5-S1 on the right at L3-L4. The patient rates his pain as a 5 on a scale of 10 at its worst over the past week, 4 on average and 4 at its least and is a 4 today. The patient reports it is aching and dull, radiating into the left lower extremity. PHYSICAL EXAMINATION: VITAL SIGNS: The patient's blood pressure is 122/67, pulse 67, respirations 18, temperature 98.0 degrees Fahrenheit, weight is 273 pounds. GENERAL: The patient is awake, alert, oriented, appropriate, very pleasant demeanor. HEENT: Head shows normocephalic, atraumatic. Extraocular movements are intact and symmetrical. Oral cavity: Mucous membranes moist and pink. Dentition is intact. NECK: Shows anterior throat supple without palpable lymphadenopathy noted. Swallow reflex symmetrical. CHEST: Shows normal on inspection. Breath sounds are clear bilaterally. HEART: Shows S1, S2 clear. No murmurs auscultated. ABDOMEN: Soft, nontender, and nondistended. No palpable organomegaly is noted. No rebound or guarding demonstrated. BACK: Shows spine grossly in the midline. Normal-appearing thoracic kyphosis and some flattening of lumbar lordotic curvature with well-healed surgical scarring noted. Lumbar paraspinous muscle shows symmetrical on inspection, with palpation shows some moderate tenderness diffusely bilaterally, but only diffusely without significant radiation. EXTREMITIES: The patient's lower extremities show deep tendon reflexes at 1+ in the patellar and tendo calcaneus tendons are equal. Motor exam is strong with 5/5 dorsiflexion, extension, quadriceps and hamstring flexion symmetrical. Peripheral pulses are 1+. No peripheral edema is noted bilaterally. Options were discussed with the patient. The patient's old chart was reviewed as his current medication regimen updated. Current review of systems updated today as well. We will proceed with lumbar epidural steroid injection today as he has done well with these in the past, would like to proceed. Risks were discussed including, but not limited to bleeding, infection, possibility of epidural hematoma, subsequent neurological compromise, dural puncture, headaches, spinal cord and/or nerve damage, side effects of steroid medication and poor results regarding pain control. The patient understands and wished to proceed. The patient will return to clinic in approximately 2 weeks for followup. He was counseled on return appointment, activity level and side effects to be aware of. DIAGNOSIS: Lumbar radiculopathy with lumbar degenerative disk disease and lumbar post-laminectomy syndrome. PROCEDURE: Lumbar epidural steroid injection, translaminar approach at L3-L4 level using C-arm fluoroscopic guidance under sterile prep and drape using local anesthetic. MEDICATION INJECTED: A total of 120 mg Depo-Medrol plus 10 mL of preservative-free normal saline and 2 mL of contrast. CONDITION AT DISCHARGE: Stable. The patient tolerated the procedure well, had no complications. LOUISE FIGUEROA MD DR: MICHAEL/alfonso JOB#: [id number] / [id number]
== END ==
LOC: PNCL 08:00
PROVIDERS: ATTEND Anesthesiology
DX: M51.16 Intervertebral disc disorders with radiculopathy, lumbar region (principal); M96.1 Postlaminectomy syndrome, not elsewhere classified; M50.10 Cervical disc disorder with radiculopathy, unspecified cervical region
CPT/HCPCS: 62323; J1030; J1040; Q9965

== ENCOUNTER → 2019-07-14 | Outpatient (CLI) | payer MEDICARE ==
--- NOTE | 2019-07-14 10:10 | PAIN ---
DATE OF SERVICE: 07/14/2019 PROGRESS NOTE FOR PAIN CLINIC DIAGNOSES: Lumbar radiculopathy with lumbar degenerative disk disease and post-lumbar laminectomy syndrome. HISTORY OF PRESENT ILLNESS: The patient is a 64-year-old male who returns for followup status post lumbar epidural steroid injection x 1. The patient reports about 60% improvement. He is still having some pain in the low back and left leg, but much improved. The patient reports he has increased activity with greater ease and comfort, walking greater distances and walking much more comfortably. The patient rates his pain as 6 on a scale of 10 at its worst over the past week, 4 on average, 2 at its least and is a 4 today. The patient reports it is dull and constant in the low back, left leg, mostly in the posterior gluteus, lateral thigh, anterior thigh and medial thigh. The patient reports no new motor or sensory deficits, no new bowel or bladder incontinence or other complaints. PHYSICAL EXAMINATION: VITAL SIGNS: The patient's blood pressure is 114/72, pulse 63, respirations 18, temperature 98.1 degrees Fahrenheit, height is 5 feet 10 inches, and weight is 271 pounds. GENERAL: The patient is awake, alert, oriented, appropriate, very pleasant demeanor. HEENT: Head shows normocephalic, atraumatic. Extraocular movements are intact and symmetrical. Oral cavity: Mucous membranes moist and pink. Dentition is intact. NECK: Shows anterior throat supple without palpable lymphadenopathy noted. Swallow reflex symmetrical. CHEST: Shows normal on inspection. Breath sounds clear to auscultation bilaterally. HEART: Shows S1, S2 clear. ABDOMEN: Obese, soft, nontender, nondistended. BACK: Shows spine grossly in midline. Moderate flattening of lumbar lordotic curvature with well-healed surgical scarring noted. Lumbar paraspinous muscle shows symmetrical on inspection, on palpation shows some moderate tenderness diffusely in the low lumbar distribution only, but without radiation. The patient has good rotational motion of the lumbar spine both laterally as well as extension and flexion without difficulty. EXTREMITIES: Lower extremities show deep tendon reflexes 1+ in the patellar and tendo calcaneus tendons. Motor exam is strong with 5/5 dorsiflexion, extension, quadriceps and hamstring flexion. Peripheral pulses are 1+ posterior tibia. No peripheral edema noted bilaterally. Options were discussed with the patient. The patient's old chart was reviewed as his current medication regimen updated. Current review of systems updated today as well. We will proceed with a second in the series of lumbar epidural steroid injection today with fluoroscopic guidance. Risks were again discussed including, but not limited to bleeding, infection, possibility of epidural hematoma, subsequent neurological compromise, dural puncture, headaches, spinal cord and/or nerve damage, side effects of steroid medication and poor results regarding pain control. The patient understands and wished to proceed. The patient will return to clinic in approximately 2 weeks for followup. He was counseled on return appointment, activity level and side effects to be aware of. DIAGNOSIS: Lumbar radiculopathy with lumbar degenerative disk disease and lumbar postlaminectomy syndrome. PROCEDURE: Lumbar epidural steroid injection, translaminar approach, L3-L4 level using Roxann fluoroscopic guidance under sterile prep and drape using local anesthetic. MEDICATION INJECTED: A total of 120 mg Depo-Medrol plus 10 mL of preservative-free normal saline and 2 mL of contrast. CONDITION AT DISCHARGE: Stable. The patient tolerated the procedure well and had no complications. LOUISE FIGUEROA MD DR: MICHAEL/alfonso JOB#: [id number] / [id number]
== END ==
LOC: PNCL 08:13
PROVIDERS: ATTEND Anesthesiology
DX: M51.16 Intervertebral disc disorders with radiculopathy, lumbar region (principal); M96.1 Postlaminectomy syndrome, not elsewhere classified
CPT/HCPCS: 62323; J1030; J1040; Q9965

== ENCOUNTER → 2019-09-28 | Outpatient (CLI) | payer MEDICARE ==
--- NOTE | 2019-09-28 12:28 | PAIN ---
DATE OF SERVICE: 09/28/2019 PROGRESS NOTE FOR PAIN CLINIC DIAGNOSES: 1. Lumbar radiculopathy with lumbar degenerative disk disease and lumbar post-laminectomy syndrome. 2. Cervical radiculopathy with cervical degenerative disk disease. HISTORY OF PRESENT ILLNESS: The patient is a 64-year-old male who returns for followup status post lumbar epidural steroid injection x 2, last seen 07/14/2019. The patient reports he did very well with about 50% improvement after the last injection, the pain in the low back and the left lower extremity. The patient reports no new motor or sensory deficits, no new bowel or bladder incontinence. The pain is returning now over the past week or so, increasing in the left leg, mostly in the lateral anterior thigh, anterior medial thigh and across the low back as well. The patient reports that 9 on a scale of 10 at its worst, 7 on average in the last week and 4 at its least and is a 4 today. The patient reports it is sharp and stabbing, radiating, worse areas in the anterior thigh on the left side superiorly. The patient reports initially he was doing much better with greater distance walking, doing household activities with greater ease and comfort, traveling with greater ease, getting in and out of the car easier and sleeping better at night. The patient reports it awakens him from sleep occasionally, but not very often. The patient reports no new motor or sensory deficits, no new bowel or bladder incontinence or other complaints. PHYSICAL EXAMINATION: VITAL SIGNS: The patient's blood pressure 126/72, pulse 81, respirations 16, temperature 98.6 degrees Fahrenheit, height is 5 feet 11 inches and weight is 286 pounds. GENERAL: The patient is awake, alert, oriented, appropriate, very pleasant demeanor. HEENT: Shows normocephalic, atraumatic. Extraocular movements are intact and symmetrical. Oral cavity: Mucous membranes moist and pink. Dentition is intact. NECK: Shows anterior throat supple without palpable lymphadenopathy noted. Swallow reflex symmetrical. CHEST: Shows normal on inspection. Breath sounds are clear bilaterally. HEART: Shows S1, S2 clear. No murmurs auscultated. ABDOMEN: Soft, nontender, nondistended. No palpable organomegaly is noted. No rebound or guarding demonstrated. BACK: Shows spine grossly in the midline. Normal appearing thoracic kyphosis and flattening of lumbar lordotic curvature with well-healed surgical scarring noted. Lumbar paraspinous muscle shows symmetrical on inspection, on palpation shows some moderate tenderness diffusely bilaterally going diffusely without significant radiation. The patient has good rotational motion of lumbar spine, both laterally as well as extension and flexion without significant pain reported. EXTREMITIES: The patient's lower extremities show deep tendon reflexes at 1+ in the patellar and tendo calcaneus tendons equal. Motor exam is strong with 5/5 dorsiflexion, extension, quadriceps and hamstring flexion symmetrical. Peripheral pulses are 1+ posterior tibia. No peripheral edema is noted. Options were discussed with the patient. The patient's old chart was reviewed as his current medication regimen updated. Current review of systems updated today as well. We will proceed with a third in the series of lumbar epidural steroid injection today with fluoroscopic guidance. Risks were again discussed including, but not limited to bleeding, infection, possibility of epidural hematoma, subsequent neurological compromise, dural puncture, headaches, spinal cord and/or nerve damage, side effects of steroid medication and poor results regarding pain control. The patient understands and wished to proceed. The patient will return to clinic in approximately 2 weeks for followup, was counseled as to return appointment, activity level and side effects to be aware of. DIAGNOSIS: Lumbar radiculopathy with lumbar degenerative disk disease and lumbar post-laminectomy syndrome. PROCEDURE: Lumbar epidural steroid injection, translaminar approach at the L3-L4 level using C-arm fluoroscopic guidance under sterile prep and drape using local anesthetic. MEDICATION INJECTED: A total of 120 mg Depo-Medrol plus 10 mL of preservative-free normal saline and 2 mL of Isovue for contrast. CONDITION AT DISCHARGE: Stable. The patient tolerated the procedure well, had no complications. LOUISE FIGUEROA MD DR: MICHAEL/alfonso JOB#: [id number] / [id number]
== END ==
LOC: PNCL 11:35
PROVIDERS: ATTEND Anesthesiology
DX: M51.16 Intervertebral disc disorders with radiculopathy, lumbar region (principal); M96.1 Postlaminectomy syndrome, not elsewhere classified; M50.10 Cervical disc disorder with radiculopathy, unspecified cervical region
CPT/HCPCS: 62323; J1030; J1040; Q9965

== ENCOUNTER → 2020-02-29 | Outpatient (CLI) | payer MEDICARE ==
[~2020-02-29] MED LIST changes: +GADOTERATE 7.5 MMOL/15ML VIAL. IVP ONE; -IOHEXOL 180 MG/ML 10 ML VIAL. ONE; +MULT-445 PO; -MULT1TAB52 PO; -methylPREDNISolone ACETATE 40 MG/ML VIAL. ONE; -methylPREDNISolone ACETATE 80 MG/ML VIAL. ONE
--- NOTE | 2020-02-29 16:14 | KCIC ---
CERVICAL SPINE WO/W CONTRAST DATE: 02/29/2020 2:45 PM INDICATION: CERVICAL RADICULOPATHY/S/P CERVICAL FUSION. Prior fusion in 2009. Neck pain, ramírez's, tension, falls. BUE numbness. TECHNIQUE: Multiplanar multisequence magnetic resonance imaging of the cervical spine was performed with and without administration of intravenous contrast using the standard cervical spine protocol. 24 cc of Clariscan contrast was administered intravenously during the examination. COMPARISON: 07/23/2016. FINDINGS: Postsurgical changes of posterior decompression and posterior instrumentation at C3-C6. Straightening of the cervical lordosis. Trace anterolisthesis of C4-5. No acute fracture. Multilevel degenerative disc desiccation and disc height loss, worst and severe at C6-7. Small amount of abnormal fluid signal and enhancement in the C3-4 disc space. Focal abnormal spinal cord signal and volume loss at C4-5 consistent with myelomalacia. On the limited views of the cranial cavity and brain, the cerebellum and gloria have normal morphology and signal characteristics. No Chiari malformation. No soft tissue abnormality. Normal signal voids are present in the vertebral arteries. C2-3: Uncovertebral hypertrophy. Moderate facet arthropathy. Severe right and moderate left neural foraminal narrowing. No spinal canal stenosis Significant spinal canal stenosis or neural foraminal narrowing. C3-4: Posterior decompression. Uncovertebral hypertrophy. Moderate facet arthropathy. No spinal canal stenosis. Moderate neural foraminal narrowing. C4-5: Posterior decompression. Uncovertebral hypertrophy. Severe facet arthropathy. Moderate neural foraminal narrowing. No spinal canal stenosis. C5-6: Posterior decompression Disc osteophyte complex. Uncovertebral hypertrophy. Moderate facet arthropathy. Mild to moderate right and moderate left neural foraminal narrowing. No spinal canal stenosis. C6-7: Posterior decompression. Disc osteophyte complex. Uncovertebral hypertrophy. Moderate facet arthropathy. Mild to moderate neural foraminal narrowing. No spinal canal stenosis. C7-T1: Mild right and moderate left facet arthropathy. No significant spinal canal stenosis. Mild left neural foraminal narrowing. IMPRESSION: 1. Moderate to severe cervical spondylosis, detailed level by level above. 2. Mild fluid signal and enhancement in the C3-4 disc space may be degenerative, although an infectious process could have a similar appearance. Correlate with laboratory values (ESR, CRP, WBC). 3. Focal area of myelomalacia at C4-5. Electronically signed by: Oren Goodman MD (02/29/2020 4:11 PM) [id number]
--- NOTE | 2020-03-01 09:00 | KCIC ---
LUMBAR SPINE WO/W CONTRAST Date: 02/29/2020 2:00 PM Indication: RADICULAR LBP/PREVIOUS BACK SURGERY/OSTEOARTHRITS. Prior surgery in 2001, 2009. Multiple falls, LBP. Comparison: 05/23/2019. Technique: Multi-planar multi-weighted magnetic resonance imaging of the lumbar spine was performed with and without intravenous contrast using the standard lumbar spine protocol. 24 cc Clariscan contrast was administered intravenously during the examination. FINDINGS: Trace retrolisthesis at L2-3. No acute fracture. Advanced multilevel degenerative disc desiccation and disc height loss. Degenerative endplate edema at L1-2, L2-3, L3-4. Unchanged slight T2 hyperintensity in the T11-12 disc space. The conus terminates at a normal level. No abnormal signal is seen within the visualized distal spinal cord. No clumping of intrathecal nerve roots. Partially visualized renal cysts. T12-L1: Disc bulge. Mild facet arthropathy. No significant spinal stenosis or neural foraminal narrowing. L1-L2: Disc bulge. Mild facet arthropathy. No significant spinal stenosis. Mild left lateral recess narrowing. Mild bilateral neural foraminal narrowing. L2-L3: Left hemilaminectomy. Moderate right and mild left facet arthropathy. Enhancing soft tissue in the left ventral epidural space, likely postsurgical change. Unchanged small amount of fluid in the left dorsolateral epidural space with mild narrowing of the thecal sac and left lateral recess. Mild narrowing of the right lateral recess due to disc bulge. Moderate right and moderate to severe left neural foraminal narrowing. L3-L4: Disc bulge. Moderate facet arthropathy. Ligamentum flavum thickening. Mild to moderate spinal stenosis. Moderate lateral recess narrowing. Moderate to severe right and moderate left bilateral neural foraminal narrowing. L4-L5: Left hemilaminectomy. Moderate facet arthropathy. Disc bulge. No spinal canal stenosis. Mild lateral recess narrowing. Moderate right and mild left neural foraminal narrowing. L5-S1: Disc bulge with left foraminal and far lateral protrusion with moderate to severe narrowing of the left neural foramen and displacement of the exiting left L5 nerve root. Mild right neural foraminal narrowing. Mild right and severe left facet arthropathy. No spinal stenosis. IMPRESSION: Advanced lumbar spondylosis, detailed level by level above. Degenerative changes are similar to the prior exam. Electronically signed by: Oren Goodman MD (03/01/2020 8:57 AM) [id number]
== END ==
LOC: KCIC MRI 13:41
PROVIDERS: ATTEND Physician Assistant Medical
DX: M47.22 Other spondylosis with radiculopathy, cervical region (principal); M54.41 Lumbago with sciatica, right side; M54.42 Lumbago with sciatica, left side; M47.26 Other spondylosis with radiculopathy, lumbar region; G95.89 Other specified diseases of spinal cord
CPT/HCPCS: 72156; 72158; 82565; A9575

== ENCOUNTER → 2020-03-05 | Outpatient (CLI) | payer MEDICARE ==
[~2020-03-05] MED LIST changes: -GADOTERATE 7.5 MMOL/15ML VIAL. IVP ONE; +IOHEXOL 180 MG/ML 10 ML VIAL. ONE; +methylPREDNISolone ACETATE 40 MG/ML VIAL. ONE; +methylPREDNISolone ACETATE 80 MG/ML VIAL. ONE
--- NOTE | 2020-03-05 10:17 | PDOC ---
Progress Note - Pain Clinic Date of Service: DOS: DATE: 03/05/20 TIME: 10:14 Diagnosis: Dx: Lumbar radiculopathy with lumbar degenerative disc disease lumbar postlaminectomy syndrome Cervical radiculopathy with cervical degenerative disc disease cervical postlaminectomy syndrome History or Present Illness: HPI: 64-year-old male returns follow-up status post lumbar epidural steroid injections x3 most recently seen September 28, 2019 patient did very well after his last injection with about a 75 to 80% improvement patient ports the pain returned over the past 1 to 2 months in the low back and into the left lower extremities was previously posterior gluteus posterior lateral thigh lateral anterior thigh anteromedial thigh some on the right groin as well worse with walking standing changing positions patient rates his pain at 7 on scale 10 is worse over the past week 5 on average 3 at its least is a 5 today. Patient reports no new motor or sensory deficits no new bowel or bladder incontinence pain worse on the left side in the low back with some fatigability of the left leg with standing walking more than about 15 to 20 minutes. Patient reports is better with sitting or laying down does not generally awaken from sleep at night initially was doing much better with distance walking doing household activities and traveling with greater ease and comfort but now the pain is returning. Patient reports no new motor or sensory deficits no bowel or bladder incontinence or other complaints. Physical Exam: VS: Blood pressure is 135/60 pulse 76 respirations are 18 temperature 90.6 F height is 5 feet 11 inches weight is 2 6 8 pounds PE: PHYSICAL EXAMINATION: GENERAL: The patient is awake, alert, oriented, appropriate, very pleasant demeanor HEENT: Shows normocephalic, atraumatic. Extraocular movements are intact and symmetrical. Oral cavity: Mucous membranes moist and pink. NECK: Shows anterior throat supple without palpable lymphadenopathy noted. Swallow reflex symmetrical. CHEST: Shows normal on inspection. Breath sounds are clear bilaterally, no rales rhonchi or wheezes auscultated. HEART: Shows S1, S2 clear. No murmurs auscultated. ABDOMEN: Soft, nontender, nondistended, obese. No palpable organomegaly is noted. No rebound or guarding demonstrated. BACK: Shows spine grossly in the midline. Normal-appearing cervical lordotic curvature. There is slightly increased thoracic kyphosis, some minor flattening of the lumbar lordotic curvature. Lumbar paraspinous muscles show symmetrical on inspection, on palpation shows some moderate tenderness diffusely throughout the upper, middle and lower distribution of the paraspinous muscles bilaterally, but without specific trigger points, without radiation of pain. The patient has good rotational motion of the lumbar spine, both laterally as well as extension and flexion without significant difficulty. No tenderness over the spinous processes, sacrum or sacroiliac regions. EXTREMITIES: Lower extremities show deep tendon reflexes 1+ in the patellar and tendo calcaneus tendons. Motor exam is 5 on a scale of 5 with right dorsiflexion, extension, quadriceps and hamstring flexion and 5/5 on the left. Peripheral pulses are 1+ posterior tibial. No peripheral edema is noted bilaterally. Lower extremities are warm and dry to touch, equal in color and appearance. SKIN: Shows warm and dry, good turgor. No edema. No sores, rashes or bruising throughout. Procedure: Procedure: Options were discussed with the patient. Patient's old chart was reviewed his current medication regimen updated current review of systems updated today as well. We will proceed with a first in the series lumbar epidural steroid injection today with fluoroscopic guidance. Risks were discussed including but not limited to: Bleeding, infection, possibility of epidural hematoma and subsequent neurological compromise, dural puncture, headaches, spinal cord and/or nerve damage, side effects of steroid medication, and poor results regarding pain control. Patient understands wished to proceed. Patient will return to clinic in approximate 2 weeks for follow-up was counseled as to return appointment activity level and side effects to be aware of. Medication Injected: Med Injected: Procedure is lumbar epidural steroid injection under local anesthetic using sterile prep and drape at the L3-4 level using C-arm fluoroscopic guidance in both AP and lateral views medications injected is 120 mg Depo-Medrol + 10 mL preservative-free normal saline and 2 mL contrast- condition at discharge is stable patient tolerated procedure well had no complications. Condition at Discharge: Condition at Discharge: Condition at discharge is stable patient tolerated procedure well had no complications. LOUISE FIGUEROA MD Mar 05, 2020 10:17
== END ==
LOC: PNCL 09:19
PROVIDERS: ATTEND Anesthesiology
DX: M51.16 Intervertebral disc disorders with radiculopathy, lumbar region (principal); M50.10 Cervical disc disorder with radiculopathy, unspecified cervical region; M46.1 Sacroiliitis, not elsewhere classified; K21.9 Gastro-esophageal reflux disease without esophagitis; Z88.0 Allergy status to penicillin; Z79.899 Other long term (current) drug therapy; Z83.3 Family history of diabetes mellitus; Z81.8 Family history of other mental and behavioral disorders; Z80.42 Family history of malignant neoplasm of prostate; Z83.6 Family history of other diseases of the respiratory system
CPT/HCPCS: 62323; J1030; J1040; Q9965

== ENCOUNTER → 2020-04-26 | Outpatient (CLI) | payer MEDICARE ==
[~2020-04-26] MED LIST changes: +CALC500T30 PO; -CLIN300C8 PO; +CLIN300C9 PO
--- NOTE | 2020-04-26 10:40 | PDOC ---
Progress Note - Pain Clinic Date of Service: DOS: DATE: 04/26/20 TIME: 10:37 Diagnosis: Dx: Lumbar radiculopathy with lumbar degenerative disease and lumbar postlaminectomy syndrome Cervical radiculopathy with cervical degenerative disc disease and cervical postlaminectomy syndrome History or Present Illness: HPI: 64-year male returns follow-up status post lumbar epidural steroid traction x1. Patient reports about 50% improvement in his low back and left lower extremity pain. Patient reports no new motor or sensory deficits been increase his activity greater ease and comfort walking greater distances doing household activities greater ease and comfort especially bending down and picking things up with much greater ease is been working in the yard last few days with much more comfort. Patient reports no new motor or sensory deficits no new bowel or bladder incontinence. Pain low back into the left lower extremity as it was previously into the anterior thigh and anterior medial thigh dull and constant but better after last injection. Patient rates his pain is a 6 on scale 10 is worse over the past week for an average 3 displeasing is a 4 today. Reports he is sleeping better at night does not awaken her from sleep. Physical Exam: VS: Blood pressure is 108/66 pulse 61 respirations 18 temp Fahrenheit height is 5 foot 10 inches weight is 236 pounds PE: PHYSICAL EXAMINATION: GENERAL: The patient is awake, alert, oriented, appropriate, very pleasant demeanor HEENT: Shows normocephalic, atraumatic. Extraocular movements are intact and symmetrical. Oral cavity: Mucous membranes moist and pink. NECK: Shows anterior throat supple without palpable lymphadenopathy noted. Swallow reflex symmetrical. CHEST: Shows normal on inspection. Breath sounds are clear bilaterally, no rales or rhonchi. HEART: Shows S1, S2 clear. No murmurs auscultated. ABDOMEN: Soft, nontender, nondistended, obese. No palpable organomegaly is noted. No rebound or guarding demonstrated. BACK: Shows spine grossly in the midline. Normal-appearing cervical lordotic curvature. There is slightly increased thoracic kyphosis, some minor flattening of the lumbar lordotic curvature. Well-healed midline surgical scar. Lumbar paraspinous muscles show symmetrical on inspection, on palpation shows some moderate tenderness diffusely throughout the upper, middle and lower distribution of the paraspinous muscles bilaterally, but without specific trigger points, without radiation of pain. The patient has good rotational motion of the lumbar spine, both laterally as well as extension and flexion without significant difficulty. No tenderness over the spinous processes, sacrum or sacroiliac regions. EXTREMITIES: Lower extremities show deep tendon reflexes 1+ in the patellar and tendo calcaneus tendons. Motor exam is 5 on a scale of 5 with right dorsiflexion, extension, quadriceps and hamstring flexion and 5/5 on the left. Peripheral pulses are 1+ posterior tibial. No peripheral edema is noted bilaterally. Lower extremities are warm and dry to touch, equal in color and appearance. SKIN: Shows warm and dry, good turgor. No edema. No sores, rashes or bruising throughout. Procedure: Procedure: Pressure discussed with the patient. Patient chart was reviewed his his current medication regimen updated current review of systems updated today as well. We will proceed with a second in the series lumbar epidural steroid injection today with fluoroscopic guidance. Risks were discussed including but not limited to: Bleeding, infection, possibility of epidural hematoma and subsequent neurological compromise, dural puncture, headaches, spinal cord and/or nerve damage, side effects of steroid medication, and poor results regarding pain control. Patient understands wished to proceed. Patient will return to clinic in approximate 2 weeks for follow-up, was counseled as to return appointment activity level and side effects to be aware of. Medication Injected: Med Injected: Procedure is lumbar epidural steroid injection under local anesthetic using sterile prep and drape at the L3-4 level using C-arm fluoroscopic guidance in both AP and lateral views medications injected is 120 mg Depo-Medrol + 10 mL preservative-free normal saline and 2 mL contrast- condition at discharge is stable patient tolerated procedure well had no complications. Condition at Discharge: Condition at Discharge: Condition at discharge is stable, patient tolerated procedure well and had no complications. LOUISE FIGUEROA MD Apr 26, 2020 10:40
== END | disposition home or self-care (01) ==
LOC: PNCL 09:29
PROVIDERS: ATTEND Anesthesiology
DX: M51.16 Intervertebral disc disorders with radiculopathy, lumbar region (principal); M50.10 Cervical disc disorder with radiculopathy, unspecified cervical region; M96.1 Postlaminectomy syndrome, not elsewhere classified; K21.9 Gastro-esophageal reflux disease without esophagitis; M19.90 Unspecified osteoarthritis, unspecified site; F41.9 Anxiety disorder, unspecified; F32.9 Major depressive disorder, single episode, unspecified; G47.30 Sleep apnea, unspecified; N40.1 Benign prostatic hyperplasia with lower urinary tract symptoms; Z85.828 Personal history of other malignant neoplasm of skin; Z90.49 Acquired absence of other specified parts of digestive tract; Z98.890 Other specified postprocedural states; Z79.899 Other long term (current) drug therapy; Z72.89 Other problems related to lifestyle; Z88.0 Allergy status to penicillin; Z82.49 Family history of ischemic heart disease and other diseases of the circulatory system; Z83.3 Family history of diabetes mellitus
CPT/HCPCS: 62323; J1030; J1040; Q9965

== ENCOUNTER → 2020-06-11 | Outpatient (CLI) | payer MEDICARE ==
[~2020-06-11] MED LIST changes: -OMEP40CA45 PO; +OMEP40CA7 PO
--- NOTE | 2020-06-11 10:47 | PDOC ---
Progress Note - Pain Clinic Date of Service: DOS: DATE: 06/11/20 TIME: 10:43 Diagnosis: Dx: Lumbar radiculopathy with lumbar degenerative disc disease and lumbar postlaminectomy syndrome Cervical radiculopathy with cervical degenerative disease and cervical postlaminectomy syndrome History or Present Illness: HPI: 65-year-old male returns to follow-up status post lumbar epidural to injection x2. Most recently April 26, 2020. Patient brought about 75% improvement in his low back and left lower extremity pain is returning now over the past few weeks patient reports is beginning to be more noticeable over the past week significantly patient has had a lot of activity as his mother has recently patient reports no new motor or sensory deficits no new bowel or tamica dder incontinence or other complaints. Scribes pain is cramping and aching in the low back and the left lower extremity again worse with walking standing changing positions. Patient rates his pain as a 6 on scale 10 is worse over the past week 3 on average to its least is a 3 today. Physical Exam: VS: Blood pressure is 105/62 pulse 75 respirations are 18 temperature 98.3 F height is 5 feet 10 inches weight 219 pounds PE: PHYSICAL EXAMINATION: GENERAL: The patient is awake, alert, oriented, appropriate, very pleasant demeanor HEENT: Shows normocephalic, atraumatic. Extraocular movements are intact and symmetrical. Oral cavity: Mucous membranes moist and pink. NECK: Shows anterior throat supple without palpable lymphadenopathy noted. Swallow reflex symmetrical. CHEST: Shows normal on inspection. Breath sounds are clear bilaterally, no rales or rhonchi. HEART: Shows S1, S2 clear. No murmurs auscultated. ABDOMEN: Soft, nontender, nondistended, obese. No palpable organomegaly is noted. No rebound or guarding demonstrated. BACK: Shows spine grossly in the midline. Normal-appearing cervical lordotic curvature. There is increased thoracic kyphosis, some flattening of the lumbar lordotic curvature. Well-healed midline surgical scarring is noted. Lumbar paraspinous muscles show symmetrical on inspection, on palpation shows some moderate tenderness diffusely throughout the upper, middle and lower distribution of the paraspinous muscles without specific trigger points, without radiation of pain. The patient has good rotational motion of the lumbar spine, both laterally as well as extension and flexion without significant difficulty. No tenderness over the spinous processes, sacrum or sacroiliac regions. EXTREMITIES: Lower extremities show deep tendon reflexes 1+ in the patellar and tendo calcaneus tendons. Motor exam is 5 on a scale of 5 with right dorsiflexion, extension, quadriceps and hamstring flexion and 5/5 on the left. Peripheral pulses are 1+ posterior tibial. No peripheral edema is noted bilaterally. Lower extremities are warm and dry to touch, equal in color and appearance. SKIN: Shows warm and dry, good turgor. No edema. No sores, rashes or bruising throughout. Procedure: Procedure: Options were discussed with the patient. Patient chart reviews his current medication regimen updated current review of systems updated today as well. We will proceed with a third in the series lumbar epidural steroid injection today with fluoroscopic guidance. Risks were discussed including but not limited to: Bleeding, infection, possibility of epidural hematoma and subsequent neurological compromise, dural puncture, headaches, spinal cord and/or nerve damage, side effects of steroid medication, and poor results regarding pain control. Patient understands and wished to proceed. Patient return to clinic in approximate 2 weeks for follow-up, was counseled as return appointment activity level and side effects to be aware of. Medication Injected: Med Injected: Procedure is lumbar epidural steroid injection under local anesthetic using sterile prep and drape at the L3-4 level using C-arm fluoroscopic guidance in both AP and lateral views medications injected is 120 mg Depo-Medrol + 10 mL preservative-free normal saline and 2 mL contrast- condition at discharge is stable patient tolerated procedure well had no complications. Condition at Discharge: Condition at Discharge: Condition at discharge stable, patient tolerated the procedure well and had no complications. LOUISE FIGUEROA MD Jun 11, 2020 10:47
--- NOTE | 2020-06-11 10:47 | PDOC4 ---
PROCEDURE Procedure Patient was consented for lumbar epidural steroid injection. Risks were dis cussed including but not limited to: Bleeding, infection, possibility of epidural hematoma and subsequent neurological compromise, dural puncture, headaches, spinal cord and/or nerve damage, side effects of steroid medication, and poor results regarding pain control. Patient understands and wished to proceed. Procedure is lumbar epidural steroid injection under local anesthetic using sterile prep and drape at the L3-4 level using C-arm fluoroscopic guidance in both AP and lateral views medications injected is 120 mg Depo-Medrol + 10 mL preservative-free normal saline and 2 mL contrast- condition at discharge is stable patient tolerated procedure well had no complications. LOUISE FIGUEROA MD Jun 11, 2020 10:47
== END | disposition home or self-care (01) ==
LOC: PNCL 09:59
PROVIDERS: ATTEND Anesthesiology
DX: M51.16 Intervertebral disc disorders with radiculopathy, lumbar region (principal); M96.1 Postlaminectomy syndrome, not elsewhere classified; M50.10 Cervical disc disorder with radiculopathy, unspecified cervical region; G47.30 Sleep apnea, unspecified; K21.9 Gastro-esophageal reflux disease without esophagitis; F41.9 Anxiety disorder, unspecified; F32.9 Major depressive disorder, single episode, unspecified; M19.90 Unspecified osteoarthritis, unspecified site; N40.0 Benign prostatic hyperplasia without lower urinary tract symptoms; Z90.49 Acquired absence of other specified parts of digestive tract; Z98.890 Other specified postprocedural states; Z79.899 Other long term (current) drug therapy; Z85.828 Personal history of other malignant neoplasm of skin; Z87.891 Personal history of nicotine dependence; Z88.0 Allergy status to penicillin; Z82.49 Family history of ischemic heart disease and other diseases of the circulatory system; Z83.3 Family history of diabetes mellitus
CPT/HCPCS: 62323; J1030; J1040; Q9965

== ENCOUNTER → 2020-11-08 | Outpatient (CLI) | payer MEDICARE ==
[~2020-11-08] MED LIST changes: -IOHEXOL 180 MG/ML 10 ML VIAL. ONE; -methylPREDNISolone ACETATE 40 MG/ML VIAL. ONE; -methylPREDNISolone ACETATE 80 MG/ML VIAL. ONE
--- NOTE | 2020-11-08 14:24 | KCIC ---
MR Cervical EXAMINATION: Magnetic resonance imaging (MRI) of the cervical spine without contrast 11/08 12:34 PM HISTORY: Cervical stenosis. Previous fusion 2017. Neck pain with difficulty walking. TECHNIQUE: Multiplanar multi-weighted MRI of the cervical spine was performed without intravenous con trast using the standard cervical spine protocol. Contrast information: None administered COMPARISON: MRI cervical spine 02/29/2020. FINDINGS: There is partial osseous fusion of C3-C4. There is minimal anterolisthesis of C4 on C5. There is part ial osseous fusion of C6-C7. Vertebral body heights are maintained. Fluid identified within the disc space at C3-C4 without endplate erosion are identified edema. Consideration may be given for endplate degenerative changes given stability. Laminectomy decompression identified at C3-C4, C4-C5 and C5-C6 . There is T2 signal hyperintensity involving the cervical spinal cord at the C5 vertebral level with associated volume loss suggestive of myelomalacia. Posterior fusion hardware is identified from C3 t hrough C6. Posterior fossa is normal in appearance. Skull base is intact. Craniocervical junction is intact. Atlantoaxial articulation degenerative changes are present. C2-C3: There is a disc bulge. Moderate facet arthropathy. Moderate right and mild left neuroforaminal stenosis. Mild right uncovertebral joint disease. No spinal canal stenosis. C3-C4: No significant disc herniation partial fusion at this level. No residual neuroforaminal or spi nal canal stenosis. C4-C5: This level is fused posteriorly and decompressed by laminectomy. No residual spinal canal sten osis. C5-C6: This level is fused posteriorly without residual spinal canal stenosis status post laminectomy decompression. C6-C7: There is partial osseous fusion with posterior osteophyte and minimal effacement of the ventra l thecal sac. No residual spinal canal stenosis as with laminectomy decompression. C7-T1: Disc is normal in configuration. Moderate facet arthropathy. No neuroforaminal or spinal canal stenosis. IMPRESSION: Posterior fusion and decompression from C3 through C6 with associated laminectomy changes. No residua l spinal canal stenosis. Findings are stable. There is T2 signal hyperintensity involving the disc space at C3-C4 appears stable from 02/29/2020 fa voring endplate degenerative changes. Myelomalacia identified at C5 vertebral level. Findings are stable. Electronically signed by: Nga Allen MD (11/08/2020 2:21 PM) [email or web address]
== END ==
LOC: KCIC MRI 12:20
PROVIDERS: ATTEND Neurological Surgery
DX: M47.813 Spondylosis without myelopathy or radiculopathy, cervicothoracic region (principal); G95.89 Other specified diseases of spinal cord; M48.02 Spinal stenosis, cervical region
CPT/HCPCS: 72141

== ENCOUNTER → 2021-02-11 | Outpatient (CLI) | payer MEDICARE ==
[~2021-02-11] MED LIST changes: +CLIN-94 PO; -CLIN300C9 PO; +IOHEXOL 180 MG/ML 10 ML VIAL. ONE; +methylPREDNISolone ACETATE 80 MG/ML VIAL. ONE
--- NOTE | 2021-02-11 09:44 | PDOC ---
Progress Note - Pain Clinic Date of Service: DOS: DATE: 02/11/21 TIME: 09:38 Diagnosis: Dx: Lumbar radiculopathy with lumbar degenerative disease lumbar postlaminectomy syndrome Cervical radiculopathy with cervical degenerative disease and cervical postlaminectomy syndrome History or Present Illness: HPI: 65-year-old male returns last seen June 11, 2020 did very well after lumbar epidural steroid injection patient reports pain has been returning down the low back and the left side mostly in the posterior gluteus lateral thigh anterior thigh medial thigh and medial lower leg patient reports is been getting worse over the past few months he had bariatric surgery and had a significant weight loss since just prior to his last visit patient reports pain returning down the low back he is using a back brace when he works with lifting and standing and walking patient reports is much better with sitting or laying down still is not awakening from sleep at night patient rates pain as a 5 on a scale 10 is worse over the past week for an average 3 days least is a 3 today patient report is dull tight constant in the back itself with some radiation to the left lower extremity patient reports no bowel or bladder incontinence. Patient reports occasional pain on the right side which is new for him but is only very rare and only with standing for prolonged periods, patient reports the back brace does seem to relieve the pain more on the right side than the left side is still fairly significant and painful as new noticeable with driving car as well as sitting for prolonged periods. Patient reports no bowel or bladder incontinence. Physical Exam: VS: Blood pressure is 107/56 pulse 88 respirations 16 temperature 97.9 F height is 5 foot 11 inches weight is 191 pounds. PE: PHYSICAL EXAMINATION: GENERAL: The patient is awake, alert, oriented, appropriate, very pleasant in demeanor HEENT: Shows normocephalic, atraumatic. Extraocular movements are intact and symmetrical. Oral cavity: Mucous membranes moist and pink. Dentition is intact. NECK: Shows anterior throat supple without palpable lymphadenopathy noted. Swallow reflex symmetrical. CHEST: Shows normal on inspection. Breath sounds are clear bilaterally, no rales rhonchi or wheezes. HEART: Shows S1, S2 clear. No murmurs auscultated. ABDOMEN: Soft, nontender, nondistended. No palpable organomegaly is noted. No rebound or guarding demonstrated. BACK: Shows spine grossly in the midline. Normal-appearing cervical lordotic curvature. There is slightly increased thoracic kyphosis, some minor flattening of the lumbar lordotic curvature. Lumbar paraspinous muscles show symmetrical on inspection, on palpation shows some moderate tenderness diffusely throughout the upper, middle and lower distribution of the paraspinous muscles, but without specific trigger points, without radiation of pain. The patient has good rotat ional motion of the lumbar spine, both laterally as well as extension and flexion without significant difficulty. EXTREMITIES: Lower extremities show deep tendon reflexes 1 in the patellar and tendo calcaneus tendons. Motor exam is 5 on a scale of 5 with right dorsiflexion, extension, quadriceps and hamstring flexion and 5/5 on the left. Peripheral pulses are 1+ posterior tibial. No peripheral edema is noted bilaterally. Lower extremities are warm and dry to touch, equal in color and appearance. SKIN: Shows warm and dry, good turgor. No edema. No sores, rashes or bruising throughout. Procedure: Procedure: Options discussed with patient. Patient chart was reviewed his current medication regimen updated current review of systems updated today as well. We will proceed with a lumbar epidural steroid injection today with fluoroscopic guidance. Risks were discussed including but not limited to: Bleeding, infection, possibility of epidural hematoma and subsequent neurological compromise, dural puncture, headaches, spinal cord and/or nerve damage, side effects of steroid medication, and poor results regarding pain control. Patient understands and wished to proceed. Patient return to the clinic in approximate 2 weeks for follow-up, was counseled as return appointment, activity level, and side effects be aware of. Medication Injected: Med Injected: Procedure is lumbar epidural steroid injection under local anesthetic using sterile prep and drape at the L3-4 level using C-arm fluoroscopic guidance in both AP and lateral views medications injected is 120 mg Depo-Medrol +10mL preservative-free normal saline and 2 mL contrast- condition at discharge is stable patient tolerated procedure well had no complications. Condition at Discharge: Condition at Discharge: Condition at discharge is stable, patient tolerated procedure well and had no complications. LOUISE FIGUEROA MD Feb 11, 2021 09:44
--- NOTE | 2021-02-11 09:45 | PDOC4 ---
Procedure Note: ICD 10 Code: ICD 10 Code: M54.16 M51.36 M 96.1 Procedure Note: Patient was consented for lumbar epidural steroid injection with fluoroscopic guidance. Risks were discussed including but not limited to: Bleeding, infection, possibility of epidural hematoma and subsequent neurological compromise, dural puncture, headaches, spinal cord and/or nerve damage, side effects of steroid medication, and poor results regarding pain control. Patient understands and wished to proceed. Procedure is lumbar epidural steroid injection under local anesthetic using sterile prep and drape at the L3-4 level using C-arm fluoroscopic guidance in both AP and lateral views medications injected is 120 mg Depo-Medrol +10mL preservative-free normal saline and 2 mL contrast- condition at discharge is stable patient tolerated procedure well had no complications. LOUISE FIGUEROA MD Feb 11, 2021 09:45
== END | disposition home or self-care (01) ==
LOC: PNCL 08:59
PROVIDERS: ATTEND Anesthesiology
DX: M51.16 Intervertebral disc disorders with radiculopathy, lumbar region (principal); M50.10 Cervical disc disorder with radiculopathy, unspecified cervical region; M96.1 Postlaminectomy syndrome, not elsewhere classified; K21.9 Gastro-esophageal reflux disease without esophagitis; M19.90 Unspecified osteoarthritis, unspecified site; F41.9 Anxiety disorder, unspecified; F32.9 Major depressive disorder, single episode, unspecified; Z85.828 Personal history of other malignant neoplasm of skin; Z90.49 Acquired absence of other specified parts of digestive tract; Z98.890 Other specified postprocedural states; Z79.899 Other long term (current) drug therapy; Z72.89 Other problems related to lifestyle; Z82.49 Family history of ischemic heart disease and other diseases of the circulatory system; Z88.0 Allergy status to penicillin
CPT/HCPCS: 62323; J1040; Q9965; 62321

== ENCOUNTER → 2021-03-06 | Outpatient (CLI) | payer MEDICARE ==
[~2021-03-06] MED LIST changes: +methylPREDNISolone ACETATE 40 MG/ML VIAL. ONE
--- NOTE | 2021-03-06 08:33 | PDOC ---
Progress Note - Pain Clinic Date of Service: DOS: DATE: 03/06/21 TIME: 08:27 Diagnosis: Dx: Lumbar radiculopathy with lumbar degenerative disc disease and post lumbar laminectomy syndrome Cervical radiculopathy with cervical degenerative disc disease and cervical postlaminectomy syndrome History or Present Illness: HPI: 65-year-old male returns for follow-up status post lumba patient reports no b owel or bladder incontinence but the pain is returning with activity worse with walking standing better with sitting or laying down but generally is not awakening from sleep at night. R epidural steroid injection with approximate 40% improvement overall the low back and left lower extremity patient reports increased activity greater ease and comfort sleeping much better at night doing distance walking and traveling with greater ease and comfort reports he taken a trip to [place] in the back with an automobile where he was doing some of the driving about half the time and did very well patient reports his pain now is a 5 on a scale 10 is worse over the past week for an average 3 its least is a 3 today patient ports dull and constant in the low back left lower extremity posterior gluteus lateral thigh lateral anterior thigh anteromedial thigh medial lower leg as well. Patient reports pain is returning in the low back radiating to the left lower extremity but without any motor loss and without bowel or bladder incontinence. Physical Exam: VS: Blood pressure is 114/62 pulse 60 respirations 16 temperature 97.7 F height 5 foot 11 inches weight 191 pounds. PE: PHYSICAL EXAMINATION: GENERAL: The patient is awake, alert, oriented, appropriate, very pleasant in demeanor HEENT: Shows normocephalic, atraumatic. Extraocular movements are intact and symmetrical. Oral cavity: Mucous membranes moist and pink. NECK: Shows anterior throat supple without palpable lymphadenopathy noted. Swallow reflex symmetrical. CHEST: Shows normal on inspection. Breath sounds are clear bilaterally, distant but no rales or rhonchi. HEART: Shows S1, S2 clear. No murmurs auscultated. ABDOMEN: Soft, nontender, nondistended, obese. No palpable organomegaly is noted. BACK: Shows spine grossly in the midline. Normal-appearing cervical lordotic curvature. There is slightly increased thoracic kyphosis, some minor flattening of the lumbar lordotic curvature, with well-healed midline surgical scar noted. Lumbar paraspinous muscles show symmetrical on inspection, on palpation shows some moderate tenderness diffusely throughout the upper, middle and lower distribution of the paraspinous muscles without specific trigger points, without radiation of pain. The patient has good rotational motion of the lumbar spine, both laterally as well as extension and flexion without significant difficulty. No tenderness over the spinous processes, sacrum or sacroiliac regions. EXTREMITIES: Lower extremities show deep tendon reflexes 1+ in the patellar and tendo calcaneus tendons. Motor exam is 5 on a scale of 5 with right dorsif lexion, extension, quadriceps and hamstring flexion and 5/5 on the left. Peripheral pulses are 1+ posterior tibial. No peripheral edema is noted bilaterally. Lower extremities are warm and dry to touch, equal in color and appearance. SKIN: Shows warm and dry, good turgor. No edema. No sores, rashes or bruising throughout. Procedure: Procedure: Options were discussed with the patient. Patient chart reviews his current medication regimen updated current review of systems updated today as well. We will proceed with a lumbar epidural steroid injection today with fluoroscopic guidance. Risks were discussed including but not limited to: Bleeding, infection, possibility of epidural hematoma and subsequent neurological compro mise, dural puncture, headaches, spinal cord and/or nerve damage, side effects of steroid medication, and poor results regarding pain control. Patient understands and wished to proceed. Patient return to the clinic in approximate 2 weeks for follow-up, was counseled return appointment, activity level, and side effect to be aware of. Medication Injected: Med Injected: Procedure is lumbar epidural steroid injection under local anesthetic using sterile prep and drape at the L3-4 level using C-arm fluoroscopic guidance in both AP and lateral views medications injected is 120 mg Depo-Medrol +10mL preservative-free normal saline and 2 mL contrast- condition at discharge is stable patient tolerated procedure well had no complications. Condition at Discharge: Condition at Discharge: Condition at discharge stable, patient already procedure well and had no complications. LOUISE FIGUEROA MD Mar 06, 2021 08:33
--- NOTE | 2021-03-06 08:34 | PDOC4 ---
Procedure Note: ICD 10 Code: ICD 10 Code: M54.16 M51.36 M 96.1 Procedure Note: Patient was consented for lumbar epidural steroid injection with fluoroscopic guidance. Risks were discussed including but not limited to: Bleeding, infection, possibility of epidural hematoma and subsequent neurological compromise, dural puncture, headaches, spinal cord and/or nerve damage, side effects of steroid medication, and poor results regarding pain control. Patient understands and wished to proceed. Procedure is lumbar epidural steroid injection under local anesthetic using ster ile prep and drape at the L3-4 level using C-arm fluoroscopic guidance in both AP and lateral views medications injected is 120 mg Depo-Medrol +10mL preservative-free normal saline and 2 mL contrast- condition at discharge is stable patient tolerated procedure well had no complications. LOUISE FIGUEROA MD Mar 06, 2021 08:34
== END | disposition home or self-care (01) ==
LOC: PNCL 08:17
PROVIDERS: ATTEND Anesthesiology
DX: M51.16 Intervertebral disc disorders with radiculopathy, lumbar region (principal); M96.1 Postlaminectomy syndrome, not elsewhere classified; M50.10 Cervical disc disorder with radiculopathy, unspecified cervical region; G47.30 Sleep apnea, unspecified; K21.9 Gastro-esophageal reflux disease without esophagitis; F41.9 Anxiety disorder, unspecified; F32.9 Major depressive disorder, single episode, unspecified; N40.0 Benign prostatic hyperplasia without lower urinary tract symptoms; Z90.49 Acquired absence of other specified parts of digestive tract; Z98.890 Other specified postprocedural states; Z85.828 Personal history of other malignant neoplasm of skin; Z79.899 Other long term (current) drug therapy; Z72.89 Other problems related to lifestyle; Z88.0 Allergy status to penicillin
CPT/HCPCS: 62323; J1030; J1040; Q9965

== ENCOUNTER → 2021-03-27 | Outpatient (CLI) | payer MEDICARE ==
[~2021-03-27] MED LIST changes: +CYCL10TA19 PO; -CYCL10TA2 PO
--- NOTE | 2021-03-27 09:07 | PDOC ---
Progress Note - Pain Clinic Date of Service: DOS: DATE: 03/27/21 TIME: 09:04 Diagnosis: Dx: Lumbar radiculopathy with lumbar degenerative disease and lumbar postlaminectomy syndrome Cervical radiculopathy with cervical degenerative disc disease and postlaminectomy syndrome History or Present Illness: HPI: 65-year-old male returns for follow-up status post lumbar epidural steroid injection March 06, 2021. Patient reports only about 50% improvement and only for short lived time in the low back and the bilateral lower extremities patient reports his pain is still persistent in the low back itself and in the lower extremities mostly the posterior lateral thighs anterior thighs medial thighs but the legs are doing better than the back patient reports it is a 5 to a 6 on scale 10 is worst for an average 3 days least is a 4 today patient report is dull aching can be constant with walking standing dull and tight in the back itself but shooting in the legs again legs improving more than the back at this time patient reports is better with sitting or lying down does not awaken her from sleep at night worse with walking and standing as noted patient reports no bowel or bladder incontinence no motor deficits but significant. Both lower extremities with extended standing or walking greater than about 20 to 30 minutes. Physical Exam: VS: Blood pressure is 102/58 pulse 67 respirations 18 temperature 90.1 F weight is 198 pounds PE: PHYSICAL EXAMINATION: GENERAL: The patient is awake, alert, oriented, appropriate, very pleasant in demeanor HEENT: Shows normocephalic, atraumatic. Extraocular movements are intact and symmetrical. Oral cavity: Mucous membranes moist and pink. CHEST: Shows normal on inspection. Breath sounds are clear bilaterally. HEART: Shows S1, S2 clear. No murmurs auscultated. ABDOMEN: Soft, nontender, nondistended, obese. No palpable organomegaly is noted. BACK: Shows spine grossly in the midline. Normal-appearing cervical lordotic curvature. There is slightly increased thoracic kyphosis, some flattening of the lumbar lordotic curvature, with well-healed surgical scarring noted. Lumbar paraspinous muscles show symmetrical on inspection, on palpation shows some moderate tenderness diffusely throughout the upper, middle and lower distribution of the paraspinous muscles, but without specific trigger points, without radiation of pain. The patient has good rotational motion of the lumbar spine, both laterally as well as extension and flexion without significant difficulty. EXTREMITIES: Lower extremities show deep tendon reflexes 1+ in the patellar and tendo calcaneus tendons. Motor exam is 5 on a scale of 5 with right dorsiflexion, extension, quadriceps and hamstring flexion and 5/5 on the left. Peripheral pulses are 1+ posterior tibial. No peripheral edema is noted bilaterally. Lower extremities are warm and dry. SKIN: Shows warm and dry, good turgor. No edema. No sores, rashes or bruising throughout. Procedure: Procedure: Options discussed with patient. Patient chart was reviewed his current medication regimen updated current review of systems updated today as well. We will proceed with a lumbar epidural steroid injection stable fluoroscopic guidance. Risks were discussed including but not limited to: Bleeding, infection, possibility of epidural hematoma and subsequent neurological compromise, dural puncture, headaches, spinal cord and/or nerve damage, side effects of steroid medication, and poor results regarding pain control. Patient understands and wished to proceed. Patient will return to the clinic in approximately 2 weeks for follow-up, was counseled as to return appointment, activity level, and side effect to be aware of. Medication Injected: Med Injected: Procedure is lumbar epidural steroid injection under local anesthetic using sterile prep and drape at the L3-4 level using C-arm fluoroscopic guidance in both AP and lateral views medications injected is 120 mg Depo-Medrol +10mL preservative-free normal saline and 2 mL contrast- condition at discharge is stable patient tolerated procedure well had no complications. Condition at Discharge: Condition at Discharge: Condition at discharge stable, patient tolerated the procedure well and had no complications. LOUISE FIGUEROA MD Mar 27, 2021 09:07
--- NOTE | 2021-03-27 09:08 | PDOC4 ---
Procedure Note: ICD 10 Code: ICD 10 Code: M54.16 M51.36 M 96.1 Procedure Note: Patient was consented for lumbar epidural steroid injection with fluoroscopic guidance. Risks were discussed including but not limited to: Bleeding, infection, possibility of epidural hematoma and subsequent neurological compromise, dural puncture, headaches, spinal cord and/or nerve damage, side effects of steroid medication, and poor results regarding pain control. Patient understands and wished to proceed. Procedure is lumbar epidural steroid injection under local anesthetic using ster ile prep and drape at the L3-4 level using C-arm fluoroscopic guidance in both AP and lateral views medications injected is 120 mg Depo-Medrol +10mL preservative-free normal saline and 2 mL contrast- condition at discharge is stable patient tolerated procedure well had no complications. LOUISE FIGUEROA MD Mar 27, 2021 09:08
== END | disposition home or self-care (01) ==
LOC: PNCL 07:42
PROVIDERS: ATTEND Anesthesiology
DX: M51.16 Intervertebral disc disorders with radiculopathy, lumbar region (principal); M96.1 Postlaminectomy syndrome, not elsewhere classified; M50.10 Cervical disc disorder with radiculopathy, unspecified cervical region; K21.9 Gastro-esophageal reflux disease without esophagitis; M19.90 Unspecified osteoarthritis, unspecified site; F41.9 Anxiety disorder, unspecified; F32.9 Major depressive disorder, single episode, unspecified; N40.0 Benign prostatic hyperplasia without lower urinary tract symptoms; Z90.49 Acquired absence of other specified parts of digestive tract; Z98.890 Other specified postprocedural states; Z79.899 Other long term (current) drug therapy; Z72.89 Other problems related to lifestyle; Z88.0 Allergy status to penicillin
CPT/HCPCS: 62323; J1030; J1040; Q9965

== ENCOUNTER → 2021-08-29 | Outpatient (CLI) | payer MEDICARE ==
[~2021-08-29] MED LIST changes: -IOHEXOL 180 MG/ML 10 ML VIAL. ONE; -methylPREDNISolone ACETATE 40 MG/ML VIAL. ONE; -methylPREDNISolone ACETATE 80 MG/ML VIAL. ONE
--- NOTE | 2021-08-31 16:06 | CARD ---
MR#: [id number] Date of Study: 08/29/2021 Ordering Physician: JASON DIAZ, Referring Physician: JASON DIAZ, Tech: Phoebe Reyna [facility] APPROVED REPORT EXAM: Two-dimensional and M-mode echocardiogram with Doppler and color Doppler. Other Information Quality : GoodHR: 58bpm Rhythm : NSR INDICATION Murmur 2D DIMENSIONS RVDd3.2 (2.9-3.5cm)Left Atrium(2D)4.2 (1.6-4.0cm) IVSd1.3 (0.7-1.1cm)Aortic Root(2D)3.7 (2.0-3.7cm) LVDd5.2 (3.9-5.9cm)LVOT Diameter2.5 (1.8-2.4cm) PWd1.1 (0.7-1.1cm)LVDs3.7 (2.5-4.0cm) FS (%) 30.0 %SV74.7 ml LVEF(%)56.9 (>50%) Aortic Valve AoV Peak Juaquin.121.4cm/sAoV VTI28.4cm AO Peak GR.5.9mmHgLVOT Peak Juaquin.85.8cm/s AO Mean GR.3mmHgAVA (VMAX)3.51cm2 Mitral Valve MV E Duoegtjk94.5cm/s Pulmonary Valve PV Peak Adgaufdt122.3cm/s Tricuspid Valve TR P. Mzowwerc980ut/sTR Peak Gr.13mmHg LEFT VENTRICLE The left ventricle is normal size. There is mild concentric left ventricular hypertrophy. The left ve ntricular systolic function is normal and the ejection fraction is within normal range. Estimated eje ction fraction 60%. There is normal LV segmental wall motion. The left ventricular diastolic function and filling is normal for age. RIGHT VENTRICLE The right ventricle is normal size. There is normal right ventricular wall thickness. The right ventr icular systolic function is normal. ATRIA The left atrium size is normal. The right atrium size is normal. The interatrial septum is intact wit h no evidence for an atrial septal defect or patent foramen ovale as noted on 2-D or Doppler imaging. AORTIC VALVE The aortic valve is normal in structure and function. Doppler and Color Flow revealed no significant aortic regurgitation. There is no significant aortic valvular stenosis. MITRAL VALVE The mitral valve is normal in structure and function. There is no evidence of mitral valve prolapse. There is no mitral valve stenosis. Doppler and Color-flow revealed mild mitral regurgitation. TRICUSPID VALVE The tricuspid valve is normal in structure and function. Doppler and Color Flow revealed trace tricus pid regurgitation. Estimated PAP 20 mmHg. There is no tricuspid valve stenosis. PULMONIC VALVE Doppler and Color Flow revealed trace pulmonic valvular regurgitation. There is no pulmonic valvular stenosis. GREAT VESSELS The aortic root is normal in size. The ascending aorta is normal in size. The IVC is normal in size a nd collapses >50% with inspiration. PERICARDIAL EFFUSION There is no evidence of significant pericardial effusion. Critical Notification Critical Value: No <Conclusion> The left ventricular systolic function is normal and the ejection fraction is within normal range. E stimated ejection fraction 60%. There is normal LV segmental wall motion. Signed by : Ramsey Garcia, Electronically Approved : 08/31/2021 16:06:08
== END ==
LOC: ECHO 09:21
PROVIDERS: ATTEND Internal Medicine Cardiovascular Disease
DX: I34.0 Nonrheumatic mitral (valve) insufficiency (principal); R01.1 Cardiac murmur, unspecified; I51.7 Cardiomegaly
CPT/HCPCS: 93306; C8929